=== PATIENT | female | born 1960 | race Two or more races ===

== ENCOUNTER 2021-04-25 09:37 | Emergency (ER) | payer MEDICAID ==
[~2021-04-25] VITALS: Ht 162.6 cm; Wt 73.0 kg
[2021-04-25 10:30] LABS: Hematocrit 40.9 % (36.0-46.0); Hemoglobin 13.9 g/dL (12.2-16.2); Lymphocytes % (auto) 19.6 % (10.0-50.0); Mean Corpuscular Hemoglobin 28.8 pg (28.0-32.0); Mean Corpuscular Hgb Conc. 33.9 g/dL (32.0-36.0); Mean Corpuscular Volume 84.9 fL (80.0-100.0); Monocytes # (auto) 0.2 10 ^3/uL (0-1.3); Monocytes % (auto) 4.4 % (0.0-12.0); Neutrophils # (auto) 3.5 10 ^3/uL (1.6-8.6); Neutrophils % (auto) 70.7 % (37.0-80.0); Nucleated Red Blood Cells % 0.1 %; Red Blood Cells 4.82 10^6/uL (4.0-5.20); Red Cell Distribution Width 13.8 % (11.8-14.3)
[2021-04-25 10:31] LABS: Basophils # (auto) 0.1 10 ^3/uL (0-0.2); Basophils % (auto) 2.1 % (0.0-2.0); Eosinophils # (auto) 0.2 10 ^3/uL (0-0.8); Eosinophils % (auto) 3.2 % (0.0-7.0)
[2021-04-25] MEDS ORDERED: FLEET ENEMA(ADULT) 135 ML PR ONE (11:00)
[2021-04-25 11:01] LABS: Urine Bacteria FEW /hpf (None Seen); Urine Blood Negative /uL (Negative); Urine Specific Gravity 1.022 (1.001-1.035); Urine WBC 2 /hpf (0 - 5)
[2021-04-25 11:16] LABS: Albumin 3.6 g/dL (3.4-5.0); Calcium 9.8 mg/dL (8.5-10.1); Potassium 4.1 mmol/L (3.5-5.1)
[2021-04-25 11:20] LABS: BUN/Creatinine Ratio 24.6; Bilirubin, Total 0.6 mg/dL (0.2-1.0); Total Protein 7.3 g/dL (6.4-8.2)
[2021-04-25 12:57] VITALS: BP 134/92
== END 2021-04-25 12:58 | disposition home or self-care (01) ==
LOC: ER 09:37
DX: K59.00 Constipation, unspecified (principal); I10 Essential (primary) hypertension; E11.9 Type 2 diabetes mellitus without complications; E78.5 Hyperlipidemia, unspecified; F17.210 Nicotine dependence, cigarettes, uncomplicated
CPT/HCPCS: 36415; 74176; 80053; 81001; 85025; 93005

== ENCOUNTER 2021-05-01 11:05 | Emergency (ER) | payer MEDICAID ==
[~2021-05-01] VITALS: Ht 162.6 cm; Wt 74.8 kg
[2021-05-01 11:08] VITALS: BP 157/82
[2021-05-01] MEDS ORDERED: DOCU-94 PO (13:45)
[2021-05-01] MEDS ORDERED: POLY33504 PO (13:45)
== END 2021-05-01 16:47 | disposition home or self-care (01) ==
LOC: ER 11:05
DX: K59.00 Constipation, unspecified (principal); I10 Essential (primary) hypertension; E78.5 Hyperlipidemia, unspecified; E11.9 Type 2 diabetes mellitus without complications; F17.210 Nicotine dependence, cigarettes, uncomplicated; Z90.710 Acquired absence of both cervix and uterus
CPT/HCPCS: 93005

== ENCOUNTER 2021-08-09 09:25 | Emergency (ER) | payer MEDICAID ==
[~2021-08-09] VITALS: Ht 162.6 cm; Wt 62.1 kg
[~2021-08-09 09:25] MED LIST: DOCU-94 PO; POLY33504 PO
[2021-08-09] MEDS ORDERED: ASPirin 81 mg TAB PO ONE (10:00)
[2021-08-09 10:34] LABS: Basophils # (auto) 0 10 ^3/uL (0-0.2); Basophils % (auto) 1.2 % (0.0-2.0); Eosinophils # (auto) 0.2 10 ^3/uL (0-0.8); Eosinophils % (auto) 4.5 % (0.0-7.0); Hematocrit 35.3 % (36.0-46.0); Hemoglobin 11.7 g/dL (12.2-16.2); Mean Corpuscular Hemoglobin 29.3 pg (28.0-32.0); Mean Corpuscular Hgb Conc. 33.1 g/dL (32.0-36.0); Mean Corpuscular Volume 88.6 fL (80.0-100.0); Monocytes # (auto) 0.2 10 ^3/uL (0-1.3); Monocytes % (auto) 5.6 % (0.0-12.0); Neutrophils # (auto) 2.3 10 ^3/uL (1.6-8.6); Neutrophils % (auto) 60.7 % (37.0-80.0); Red Blood Cells 3.98 10^6/uL (4.0-5.20); Red Cell Distribution Width 14.1 % (11.8-14.3); White Blood Cell 3.7 10^3/uL (4.4-10.8)
[2021-08-09 10:54] LABS: Albumin 3.5 g/dL (3.4-5.0); Calcium 9.1 mg/dL (8.5-10.1); Potassium 3.8 mmol/L (3.5-5.1)
[2021-08-09 10:58] LABS: BUN/Creatinine Ratio 14.6; Bilirubin, Total 0.6 mg/dL (0.2-1.0); Total Protein 6.9 g/dL (6.4-8.2)
[2021-08-09] MEDS: HYDROcodone-ACET 10/325MG TAB PO ONE ×2 (11:07→11:14)
[2021-08-09 11:25] VITALS: BP 146/77
[2021-08-09] MEDS ORDERED: ONDANSETRON HCL 4 MG/2 ML VIAL IV ONE (11:30)
[2021-08-09] MEDS ORDERED: MORPHINE SULFATE 4 MG/ML SYR/VIAL IV ONE (11:30)
[2021-08-09 12:21] LABS: Urine Bacteria NONE SEEN /hpf (None Seen); Urine Blood Negative /uL (Negative); Urine Specific Gravity 1.026 (1.001-1.035); Urine WBC 2 /hpf (0 - 5)
== END 2021-08-09 12:10 | disposition left against medical advice (07) ==
LOC: ER 09:25
DX: R10.11 Right upper quadrant pain (principal); I10 Essential (primary) hypertension; E11.9 Type 2 diabetes mellitus without complications; E78.5 Hyperlipidemia, unspecified; F17.210 Nicotine dependence, cigarettes, uncomplicated; Z90.49 Acquired absence of other specified parts of digestive tract; Z90.710 Acquired absence of both cervix and uterus; Z79.899 Other long term (current) drug therapy
CPT/HCPCS: 36415; 71046; 74177; 80053; 81001; 83735; 83880; 84484; 85025; 85379; 93005; 96374; 99285; J2270; Q9967; J2405

== ENCOUNTER 2021-08-11 09:24 | Inpatient (IN) | payer MEDICAID ==
[~2021-08-11] VITALS: Ht 162.6 cm; Wt 71.5 kg
[2021-08-11 10:40] LABS: Basophils # (auto) 0 10 ^3/uL (0-0.2); Basophils % (auto) 1.2 % (0.0-2.0); Eosinophils # (auto) 0.1 10 ^3/uL (0-0.8); Hematocrit 37.4 % (36.0-46.0); Hemoglobin 12.1 g/dL (12.2-16.2); Lymphocytes % (auto) 25.4 % (10.0-50.0); Mean Corpuscular Hemoglobin 28.7 pg (28.0-32.0); Mean Corpuscular Hgb Conc. 32.3 g/dL (32.0-36.0); Mean Corpuscular Volume 88.7 fL (80.0-100.0); Monocytes # (auto) 0.2 10 ^3/uL (0-1.3); Monocytes % (auto) 5.7 % (0.0-12.0); Neutrophils # (auto) 2.6 10 ^3/uL (1.6-8.6); Neutrophils % (auto) 64.7 % (37.0-80.0); Red Blood Cells 4.22 10^6/uL (4.0-5.20)
[2021-08-11 10:56] LABS: Albumin 3.7 g/dL (3.4-5.0); Calcium 9.4 mg/dL (8.5-10.1); Magnesium 2.4 mg/dL (1.6-2.6); Potassium 3.7 mmol/L (3.5-5.1)
[2021-08-11 11:01] LABS: Bilirubin, Total 0.6 mg/dL (0.2-1.0); Total Protein 7.2 g/dL (6.4-8.2)
[2021-08-11] MEDS ORDERED: ASPirin 81 mg TAB PO ONE (11:30)
[2021-08-11 12:00] LABS: Urine Bacteria NONE SEEN /hpf (None Seen); Urine Blood Negative /uL (Negative); Urine Hyaline Cast FEW /lpf (0 - 2); Urine Mucus FEW (None Seen); Urine Specific Gravity 1.033 (1.001-1.035); Urine WBC 3 /hpf (0 - 5)
[2021-08-11 12:30] LABS: Alcohol, Urine < 3.0 mg/dL (0-10); Amphetamine Screen, Urine NEGATIVE (NEGATIVE); Barbiturate Scree,Urine NEGATIVE (NEGATIVE); Benzodiazephine Screen, Urine NEGATIVE (NEGATIVE); Cannabinoid Screen, Urine POSITIVE (NEGATIVE); Cocaine Screen, Urine NEGATIVE (NEGATIVE); Opiate Scree,Urine POSITIVE (NEGATIVE); Phencyclidine Screen, Urine NEGATIVE (NEGATIVE)
[2021-08-11] MEDS ORDERED: HYDROcodone-ACET 5/325MG TAB PO ONE (16:30)
[2021-08-11] MEDS ORDERED: CEPHALEXIN 250 MG CAP PO ONE (16:30)
[2021-08-11] MEDS ORDERED: cefTRIAXone 1GM/50ML D5W 50 ML IV ONE (16:30)
[2021-08-11] MEDS ORDERED: NITROGLYCERIN 0.4 MG SL TAB SL PRN (17:15)
[2021-08-11] MEDS ORDERED: MORPHINE SULFATE INJ 2 MG/ml SYRG IV PRN (17:15)
[2021-08-11] MEDS ORDERED: ONDANSETRON HCL 4 MG/2 ML VIAL IV PRN (17:15)
[2021-08-11] MEDS ORDERED: ACETAMINOPHEN 325 MG TAB PO PRN (17:15)
[2021-08-11] MEDS: SODIUM CHLORIDE 0.9% 1,000 ML IV SCH (17:45)
[2021-08-11] MEDS: MORPHINE SULFATE INJ 2 MG/ml SYRG IV PRN (20:05)
[2021-08-11 22:00] VITALS: BP 145/85
[2021-08-11 22:16] VITALS: BP 145/85
[2021-08-11 22:19] VITALS: BP 145/85
[2021-08-11] MEDS ORDERED: PANT40T PO (22:40)
[2021-08-11] MEDS ORDERED: MAGN241.6 PO (22:40)
[2021-08-11] MEDS ORDERED: GLIP10TA9 PO (22:40)
[2021-08-11] MEDS ORDERED: MAGNSOL PO (22:40)
[2021-08-11] MEDS: HYDROcodone-ACET 5/325MG TAB PO PRN (22:42)
[2021-08-11] MEDS ORDERED: NAP500T PO (22:43)
[2021-08-11] MEDS ORDERED: LORA-483 PO (22:43)
[2021-08-11] MEDS ORDERED: TEMAZEPAM 15 MG CAP PO ONE (23:00)
[2021-08-11] MEDS ORDERED: BISACODYL 10 MG RECT SUPP PR PRN (23:00)
[2021-08-11] MEDS ORDERED: DOCUSATE SOD 100 MG CAP PO SCH (23:00)
[2021-08-12] MEDS: MORPHINE SULFATE INJ 2 MG/ml SYRG IV PRN ×5 (01:12→19:54)
[2021-08-12] MEDS: SODIUM CHLORIDE 0.9% 1,000 ML IV SCH ×4 (01:35→22:35)
[2021-08-12 05:00] VITALS: BP 156/93
[2021-08-12 06:09] LABS: Albumin 3.2 g/dL (3.4-5.0); BUN/Creatinine Ratio 18.9; Basophils # (auto) 0 10 ^3/uL (0-0.2); Basophils % (auto) 1.1 % (0.0-2.0); Calcium 9.1 mg/dL (8.5-10.1); Eosinophils # (auto) 0.2 10 ^3/uL (0-0.8); Hematocrit 31.8 % (36.0-46.0); Hemoglobin 10.9 g/dL (12.2-16.2); Lymphocytes # (auto) 1.5 10 ^3/uL (0.4-5.4); Lymphocytes % (auto) 38.7 % (10.0-50.0); Mean Corpuscular Hemoglobin 30.3 pg (28.0-32.0); Mean Corpuscular Hgb Conc. 34.2 g/dL (32.0-36.0); Mean Corpuscular Volume 88.6 fL (80.0-100.0); Monocytes # (auto) 0.3 10 ^3/uL (0-1.3); Monocytes % (auto) 8.8 % (0.0-12.0); Neutrophils # (auto) 1.8 10 ^3/uL (1.6-8.6); Neutrophils % (auto) 46.4 % (37.0-80.0); Nucleated Red Blood Cells % 0.1 %; Potassium 3.6 mmol/L (3.5-5.1); Red Blood Cells 3.59 10^6/uL (4.0-5.20); White Blood Cell 3.9 10^3/uL (4.4-10.8)
[2021-08-12 06:12] LABS: Bilirubin, Total 0.4 mg/dL (0.2-1.0)
[2021-08-12 09:25] VITALS: BP 141/96
[2021-08-12] MEDS: cefTRIAXone 1GM/50ML D5W 50 ML IV SCH (09:33)
[2021-08-12] MEDS: DOCUSATE SOD 100 MG CAP PO SCH ×2 (09:34→22:20)
[2021-08-12] MEDS: ENOXAPARIN SOD 40 MG/0.4 ML SYRINGE SC SCH (09:34)
[2021-08-12 13:00] VITALS: BP 150/98
[2021-08-12] MEDS ORDERED: TEMAZEPAM 15 MG CAP PO PRN (21:45)
[2021-08-12 22:00] VITALS: BP 141/97
[2021-08-12] MEDS: HYDROcodone-ACET 5/325MG TAB PO PRN (23:04)
[2021-08-13] MEDS: MORPHINE SULFATE INJ 2 MG/ml SYRG IV PRN ×4 (01:35→13:47)
[2021-08-13 05:00] VITALS: BP 139/91
[2021-08-13] MEDS ORDERED: ADENOSINE 60 MG in GIVE UN-DILUTED 0 ML IV ONE (08:15)
[2021-08-13 09:19] VITALS: BP 144/98
[2021-08-13] MEDS: SODIUM CHLORIDE 0.9% 1,000 ML IV SCH (10:55)
[2021-08-13] MEDS: cefTRIAXone 1GM/50ML D5W 50 ML IV SCH (11:10)
[2021-08-13] MEDS: DOCUSATE SOD 100 MG CAP PO SCH (11:10)
[2021-08-13] MEDS: ENOXAPARIN SOD 40 MG/0.4 ML SYRINGE SC SCH (11:11)
[2021-08-13] MEDS: HYDROcodone-ACET 5/325MG TAB PO PRN (11:12)
[2021-08-13 13:47] VITALS: BP 124/72
== END 2021-08-13 13:15 | disposition home or self-care (01) | DRG 203 ==
LOC: ER 09:24 → TELE 17:14 → TELE-CENTR 21:45
PROVIDERS: ADMIT Internal Medicine; ATTEND Internal Medicine
DX: R07.9 Chest pain, unspecified (principal); E11.9 Type 2 diabetes mellitus without complications; I10 Essential (primary) hypertension; F17.210 Nicotine dependence, cigarettes, uncomplicated; E78.5 Hyperlipidemia, unspecified; Z20.822 Contact with and (suspected) exposure to COVID-19; F41.9 Anxiety disorder, unspecified; Z90.710 Acquired absence of both cervix and uterus; Z90.49 Acquired absence of other specified parts of digestive tract; Z80.3 Family history of malignant neoplasm of breast; Z79.84 Long term (current) use of oral hypoglycemic drugs
CPT/HCPCS: 36415; 71045; 76705; 78452; 80053; 80307; 81001; 82962; 83735; 83880; 84484; 85025; 85379; 93005; 93017; 93306; 96361; 96374; 97110; 97116; 97163; 97530; G0378; J0153; J0696

== ENCOUNTER 2021-08-22 15:32 | Emergency (ER) | payer MEDICAID ==
[~2021-08-22 15:32] MED LIST changes: +GLIP10TA9 PO; +LORA-483 PO; +MAGN241.6 PO; +MAGNSOL PO; +PANT40T PO
[2021-08-22] MEDS ORDERED: PANTOPRAZOLE 40 MG/10 ML VIAL INJ IV ONE (16:00)
[2021-08-22] MEDS ORDERED: SODIUM CHLORIDE 0.9% 1,000 ML IVB ONE (16:00)
[2021-08-22] MEDS ORDERED: ONDANSETRON HCL 4 MG/2 ML VIAL IV ONE (16:00)
[2021-08-22] MEDS ORDERED: MORPHINE SULFATE 4 MG/ML SYR/VIAL IV ONE (16:00)
[2021-08-22 16:23] LABS: Basophils # (auto) 0.1 10 ^3/uL (0-0.2); Eosinophils # (auto) 0.1 10 ^3/uL (0-0.8); Eosinophils % (auto) 1.2 % (0.0-7.0); Hematocrit 38.7 % (36.0-46.0); Hemoglobin 12.7 g/dL (12.2-16.2); Mean Corpuscular Hemoglobin 29.3 pg (28.0-32.0); Mean Corpuscular Hgb Conc. 32.8 g/dL (32.0-36.0); Mean Corpuscular Volume 89.4 fL (80.0-100.0); Monocytes # (auto) 0.3 10 ^3/uL (0-1.3); Neutrophils # (auto) 4.1 10 ^3/uL (1.6-8.6); Neutrophils % (auto) 74.8 % (37.0-80.0); Red Blood Cells 4.33 10^6/uL (4.0-5.20); Red Cell Distribution Width 13.4 % (11.8-14.3); White Blood Cell 5.4 10^3/uL (4.4-10.8)
[2021-08-22 16:39] LABS: Albumin 3.8 g/dL (3.4-5.0); Calcium 10.1 mg/dL (8.5-10.1); Potassium 4.3 mmol/L (3.5-5.1)
[2021-08-22 16:43] LABS: BUN/Creatinine Ratio 16.9; Bilirubin, Total 0.6 mg/dL (0.2-1.0); Total Protein 7.9 g/dL (6.4-8.2)
[2021-08-22 19:45] VITALS: BP 136/87
== END 2021-08-22 19:48 | disposition home or self-care (01) ==
LOC: ER 15:32
DX: R10.11 Right upper quadrant pain (principal); I10 Essential (primary) hypertension; E11.9 Type 2 diabetes mellitus without complications; E78.5 Hyperlipidemia, unspecified; F17.210 Nicotine dependence, cigarettes, uncomplicated; Z90.49 Acquired absence of other specified parts of digestive tract; Z90.710 Acquired absence of both cervix and uterus; Z79.899 Other long term (current) drug therapy
CPT/HCPCS: 36415; 80053; 82150; 83690; 85025; 96361; 96374; 96375; 99284; C9113; J2270; J2405; J7030

== ENCOUNTER 2021-09-01 07:40 | Emergency (ER) | payer MEDICAID ==
[~2021-09-01] VITALS: Ht 162.6 cm; Wt 58.0 kg
[2021-09-01 08:21] LABS: Basophils # (auto) 0.1 10 ^3/uL (0-0.2); Basophils % (auto) 1.5 % (0.0-2.0); Eosinophils # (auto) 0.4 10 ^3/uL (0-0.8); Eosinophils % (auto) 7.7 % (0.0-7.0); Hematocrit 34.5 % (36.0-46.0); Hemoglobin 11.7 g/dL (12.2-16.2); Lymphocytes # (auto) 1.1 10 ^3/uL (0.4-5.4); Lymphocytes % (auto) 19.6 % (10.0-50.0); Mean Corpuscular Hemoglobin 29.7 pg (28.0-32.0); Mean Corpuscular Volume 87.4 fL (80.0-100.0); Monocytes # (auto) 0.3 10 ^3/uL (0-1.3); Monocytes % (auto) 5.2 % (0.0-12.0); Neutrophils # (auto) 3.6 10 ^3/uL (1.6-8.6); Red Blood Cells 3.95 10^6/uL (4.0-5.20); White Blood Cell 5.4 10^3/uL (4.4-10.8)
[2021-09-01 08:55] LABS: Albumin 3.7 g/dL (3.4-5.0); Calcium 9.7 mg/dL (8.5-10.1); Potassium 3.6 mmol/L (3.5-5.1)
[2021-09-01 08:58] LABS: BUN/Creatinine Ratio 25.2; Bilirubin, Total 0.5 mg/dL (0.2-1.0); Total Protein 7.2 g/dL (6.4-8.2)
[2021-09-01 09:42] LABS: Urine Bacteria FEW /hpf (None Seen); Urine Blood Negative /uL (Negative); Urine Mucus FEW (None Seen); Urine Specific Gravity 1.018 (1.001-1.035); Urine WBC 8 /hpf (0 - 5)
[2021-09-01] MEDS ORDERED: MAGNESIUM CITRATE SOLUTION 300 ML BTL PO ONE (12:45)
[2021-09-01] MEDS ORDERED: LACTULOSE 20Gm/30ML SOLN PO ONE (12:45)
[2021-09-01] MEDS ORDERED: KETOROLAC TROMETH 60MG/2ML VIAL IM ONE (12:45)
[2021-09-01 13:24] VITALS: BP 107/70
== END 2021-09-01 13:32 | disposition home or self-care (01) ==
LOC: ER 07:40
DX: K59.00 Constipation, unspecified (principal); F41.1 Generalized anxiety disorder; E11.9 Type 2 diabetes mellitus without complications; E78.5 Hyperlipidemia, unspecified; I10 Essential (primary) hypertension; Z90.49 Acquired absence of other specified parts of digestive tract; Z90.710 Acquired absence of both cervix and uterus
CPT/HCPCS: 36415; 71046; 74018; 80053; 81001; 84484; 85025; 93005; 96372; 99285; J1885

== ENCOUNTER 2021-09-10 10:56 | Emergency (ER) | payer MEDICAID ==
[~2021-09-10] VITALS: Ht 162.6 cm; Wt 62.7 kg
[2021-09-10] MEDS ORDERED: ONDANSETRON HCL 4 MG/2 ML VIAL IM ONE (11:15)
[2021-09-10] MEDS ORDERED: HYDROmorphone HCL 2 MG/ML VL/or syr IM ONE (11:15)
[2021-09-10 11:44] VITALS: BP 111/74
== END 2021-09-10 13:00 | disposition home or self-care (01) ==
LOC: ER 10:56
DX: R10.9 Unspecified abdominal pain (principal); R11.0 Nausea; I10 Essential (primary) hypertension; E11.9 Type 2 diabetes mellitus without complications; E78.5 Hyperlipidemia, unspecified; F17.210 Nicotine dependence, cigarettes, uncomplicated; Z90.49 Acquired absence of other specified parts of digestive tract; Z90.710 Acquired absence of both cervix and uterus; Z79.899 Other long term (current) drug therapy
CPT/HCPCS: 96372; 99284; J1170; J2405

== ENCOUNTER 2021-11-21 02:33 | Inpatient (IN) | payer MEDICAID ==
[~2021-11-21] VITALS: Ht 167.6 cm; Wt 65.2 kg
[2021-11-21] MEDS ORDERED: MORPHINE SULFATE 4 MG/ML SYR/VIAL IV ONE ×2 (04:30→09:15)
[2021-11-21 06:31] LABS: Urine Bacteria NONE SEEN /hpf (None Seen); Urine Blood Negative /uL (Negative); Urine WBC 3 /hpf (0 - 5)
[2021-11-21 06:32] LABS: Basophils # (auto) 0 10 ^3/uL (0-0.2); Basophils % (auto) 0.9 % (0.0-2.0); Eosinophils # (auto) 0.1 10 ^3/uL (0-0.8); Eosinophils % (auto) 3.3 % (0.0-7.0); Hematocrit 33.4 % (36.0-46.0); Hemoglobin 10.9 g/dL (12.2-16.2); Lymphocytes # (auto) 1.3 10 ^3/uL (0.4-5.4); Lymphocytes % (auto) 32.4 % (10.0-50.0); Mean Corpuscular Hemoglobin 27.9 pg (28.0-32.0); Mean Corpuscular Hgb Conc. 32.5 g/dL (32.0-36.0); Mean Corpuscular Volume 85.9 fL (80.0-100.0); Monocytes # (auto) 0.3 10 ^3/uL (0-1.3); Neutrophils # (auto) 2.2 10 ^3/uL (1.6-8.6); Neutrophils % (auto) 56.4 % (37.0-80.0); Red Blood Cells 3.89 10^6/uL (4.0-5.20); Red Cell Distribution Width 13.8 % (11.8-14.3); White Blood Cell 3.9 10^3/uL (4.4-10.8)
[2021-11-21 06:48] LABS: Albumin 3.4 g/dL (3.4-5.0); Calcium 9.3 mg/dL (8.5-10.1); Potassium 3.9 mmol/L (3.5-5.1)
[2021-11-21 06:52] LABS: BUN/Creatinine Ratio 24.4; Bilirubin, Total 0.9 mg/dL (0.2-1.0); Total Protein 6.7 g/dL (6.4-8.2)
[2021-11-21] MEDS ORDERED: SODIUM CHLORIDE 0.9% 1,000 ML IV ONE (09:00)
[2021-11-21] MEDS ORDERED: IOHEXOL 300 MG/ML 100ML BOTTLE IJ ONE (09:04)
[2021-11-21] MEDS ORDERED: LIDOCAINE VISCOUS 2% 15ML UD PO ONE (12:30)
[2021-11-21] MEDS ORDERED: DONNATAL 5ml ORAL Elix (BELLADONNA ALK-PHENOBARB) PO ONE (12:30)
[2021-11-21] MEDS ORDERED: ALUM & MAG HYDROX-SIMETH LIQ(MAALOX) 30 ML PO ONE (12:30)
[2021-11-21] MEDS ORDERED: PANTOPRAZOLE 40 MG/10 ML VIAL INJ IV ONE (14:45)
[2021-11-21] MEDS ORDERED: metroNIDAZOLE 500MG/100ML 100 ML IV ONE (14:45)
[2021-11-21] MEDS ORDERED: ONDANSETRON HCL 4 MG/2 ML VIAL IV PRN (14:45)
[2021-11-21] MEDS ORDERED: DEXTROSE (50%) 50ML SYRG IV PRN (14:45)
[2021-11-21] MEDS ORDERED: hydrALAZINE HCL 20 MG/ML VL IV PRN (14:45)
[2021-11-21] MEDS ORDERED: NITROGLYCERIN 0.4 MG SL TAB SL PRN (14:45)
[2021-11-21] MEDS ORDERED: MORPHINE SULFATE INJ 2 MG/ml SYRG IV PRN (14:45)
[2021-11-21 15:01] LABS: Cholesterol 167 mg/dL (< 200)
[2021-11-21 15:04] LABS: HDL Cholesterol 62 mg/dL (40-59); LDL Cholesterol 87 mg/dL (< 100); Triglycerides 97 mg/dL (< 150)
[2021-11-21 15:45] LABS: Alcohol, Urine < 3.0 mg/dL (0-10); Amphetamine Screen, Urine NEGATIVE (NEGATIVE); Barbiturate Scree,Urine NEGATIVE (NEGATIVE); Benzodiazephine Screen, Urine NEGATIVE (NEGATIVE); Cannabinoid Screen, Urine NEGATIVE (NEGATIVE); Cocaine Screen, Urine NEGATIVE (NEGATIVE); Opiate Scree,Urine POSITIVE (NEGATIVE); Phencyclidine Screen, Urine NEGATIVE (NEGATIVE)
[2021-11-21] MEDS: ACCU-CHEK COMFORT CURVE STRIP VI SCH ×2 (17:00→21:50)
[2021-11-21] MEDS: InsuLIN REG 1unit/0.01ml Soln (100units/ml) SC SCH ×2 (17:30→21:49)
[2021-11-21] MEDS: SUCRALFATE 1 GM/10 ML ORAL SUSP PO SCH ×2 (18:44→21:50)
[2021-11-21] MEDS: MORPHINE SULFATE INJ 2 MG/ml SYRG IV PRN ×2 (20:16→23:59)
[2021-11-21 21:19] VITALS: BP 146/79
[2021-11-21 21:31] VITALS: BP 146/79
[2021-11-21] MEDS: metroNIDAZOLE 500MG/100ML 100 ML IV SCH (21:50)
[2021-11-21 22:00] VITALS: BP 149/79
[2021-11-22] MEDS: MORPHINE SULFATE INJ 2 MG/ml SYRG IV PRN ×5 (04:12→21:53)
[2021-11-22 05:00] VITALS: BP 134/64
[2021-11-22] MEDS: ACCU-CHEK COMFORT CURVE STRIP VI SCH ×4 (05:54→22:03)
[2021-11-22] MEDS: metroNIDAZOLE 500MG/100ML 100 ML IV SCH (05:54)
[2021-11-22] MEDS: InsuLIN REG 1unit/0.01ml Soln (100units/ml) SC SCH ×4 (05:54→22:03)
[2021-11-22] MEDS: SUCRALFATE 1 GM/10 ML ORAL SUSP PO SCH ×4 (05:54→21:58)
[2021-11-22 06:38] LABS: Basophils # (auto) 0.1 10 ^3/uL (0-0.2); Basophils % (auto) 1.6 % (0.0-2.0); Eosinophils # (auto) 0.1 10 ^3/uL (0-0.8); Eosinophils % (auto) 3.5 % (0.0-7.0); Hematocrit 34.9 % (36.0-46.0); Hemoglobin 11.3 g/dL (12.2-16.2); Lymphocytes # (auto) 1.3 10 ^3/uL (0.4-5.4); Lymphocytes % (auto) 38.8 % (10.0-50.0); Mean Corpuscular Hemoglobin 28.1 pg (28.0-32.0); Mean Corpuscular Hgb Conc. 32.5 g/dL (32.0-36.0); Mean Corpuscular Volume 86.6 fL (80.0-100.0); Monocytes # (auto) 0.2 10 ^3/uL (0-1.3); Monocytes % (auto) 5.6 % (0.0-12.0); Neutrophils # (auto) 1.7 10 ^3/uL (1.6-8.6); Neutrophils % (auto) 50.5 % (37.0-80.0); Nucleated Red Blood Cells % 0.2 %; Red Blood Cells 4.02 10^6/uL (4.0-5.20); Red Cell Distribution Width 13.8 % (11.8-14.3); White Blood Cell 3.3 10^3/uL (4.4-10.8)
[2021-11-22 06:55] LABS: Albumin 3.3 g/dL (3.4-5.0); Calcium 8.8 mg/dL (8.5-10.1); Potassium 4.4 mmol/L (3.5-5.1)
[2021-11-22 06:58] LABS: BUN/Creatinine Ratio 20.4
[2021-11-22 07:00] LABS: Bilirubin, Total 0.6 mg/dL (0.2-1.0); Total Protein 6.2 g/dL (6.4-8.2)
[2021-11-22 08:00] VITALS: BP 139/93
[2021-11-22] MEDS ORDERED: PANTOPRAZOLE 40 MG/10 ML VIAL INJ IV SCH (10:00)
[2021-11-22] MEDS ORDERED: amLODIPine BESYLATE 5 MG TAB PO ONE (11:00)
[2021-11-22 12:00] VITALS: BP 120/78
[2021-11-22] MEDS: PREDNISOLONE 1% LEFTEYE SCH ×2 (13:08→22:00)
[2021-11-22] MEDS: DORZOLAMIDE LEFTEYE SCH ×2 (13:08→21:59)
[2021-11-22] MEDS: TIMOLOL LEFTEYE SCH ×2 (13:08→21:59)
[2021-11-22 16:00] VITALS: BP 144/73
[2021-11-22] MEDS: PANTOPRAZOLE 40 MG/10 ML VIAL INJ IV SCH (21:58)
[2021-11-22 22:00] VITALS: BP 130/75
[2021-11-23] MEDS: MORPHINE SULFATE INJ 2 MG/ml SYRG IV PRN ×5 (02:54→22:11)
[2021-11-23 05:00] VITALS: BP 141/75
[2021-11-23 06:43] LABS: Basophils # (auto) 0 10 ^3/uL (0-0.2); Basophils % (auto) 1.2 % (0.0-2.0); Eosinophils # (auto) 0.2 10 ^3/uL (0-0.8); Eosinophils % (auto) 4.8 % (0.0-7.0); Hematocrit 33.9 % (36.0-46.0); Hemoglobin 11.1 g/dL (12.2-16.2); Lymphocytes # (auto) 1.1 10 ^3/uL (0.4-5.4); Lymphocytes % (auto) 35.2 % (10.0-50.0); Mean Corpuscular Hemoglobin 28.2 pg (28.0-32.0); Mean Corpuscular Hgb Conc. 32.8 g/dL (32.0-36.0); Mean Corpuscular Volume 85.9 fL (80.0-100.0); Monocytes # (auto) 0.3 10 ^3/uL (0-1.3); Neutrophils # (auto) 1.7 10 ^3/uL (1.6-8.6); Neutrophils % (auto) 50.8 % (37.0-80.0); Nucleated Red Blood Cells % 0.2 %; Red Blood Cells 3.94 10^6/uL (4.0-5.20); Red Cell Distribution Width 13.6 % (11.8-14.3); White Blood Cell 3.3 10^3/uL (4.4-10.8)
[2021-11-23] MEDS: PREDNISOLONE 1% LEFTEYE SCH ×3 (06:44→22:20)
[2021-11-23] MEDS: SUCRALFATE 1 GM/10 ML ORAL SUSP PO SCH ×4 (06:45→22:10)
[2021-11-23] MEDS: ACCU-CHEK COMFORT CURVE STRIP VI SCH ×4 (06:46→22:20)
[2021-11-23] MEDS: InsuLIN REG 1unit/0.01ml Soln (100units/ml) SC SCH ×4 (06:46→22:22)
[2021-11-23 06:52] LABS: INR 1.03 (0.9-1.15); Partial Thromboplastin Time 25.3 sec (24.6-33.4)
[2021-11-23 06:58] LABS: BUN/Creatinine Ratio 17.2; Potassium 4.2 mmol/L (3.5-5.1)
[2021-11-23 08:00] VITALS: BP 133/80
[2021-11-23] MEDS: PANTOPRAZOLE 40 MG/10 ML VIAL INJ IV SCH ×2 (09:55→22:11)
[2021-11-23] MEDS: DORZOLAMIDE LEFTEYE SCH ×2 (09:56→22:19)
[2021-11-23] MEDS: TIMOLOL LEFTEYE SCH ×2 (09:56→22:19)
[2021-11-23] MEDS: amLODIPine BESYLATE 5 MG TAB PO SCH (09:56)
[2021-11-23] MEDS ORDERED: SODIUM CHLORIDE LOCK 10 ML ONE (10:24)
[2021-11-23] MEDS: SODIUM CHLORIDE 0.9% 1,000 ML IV SCH ×2 (10:30→23:50)
[2021-11-23] MEDS ORDERED: LIDOCAINE VISCOUS 2% 15ML UD ONE (10:46)
[2021-11-23] MEDS: MIDAZOLAM HCL 5 MG/ML-1ML VIAL ONE ×2 (11:12→13:06)
[2021-11-23] MEDS: diphenhdrAMINE HCL 50 MG/1 ML VL ONE ×2 (11:12→11:14)
[2021-11-23] MEDS: fentaNYL CITRATE 100 MCG/2 ML VL ONE ×2 (11:12→11:24)
[2021-11-23 12:10] VITALS: BP 156/78
[2021-11-23 16:00] VITALS: BP 160/69
[2021-11-23 22:00] VITALS: BP 115/69
[2021-11-24 05:00] VITALS: BP 138/78
[2021-11-24] MEDS: MORPHINE SULFATE INJ 2 MG/ml SYRG IV PRN ×2 (05:43→10:49)
[2021-11-24] MEDS: PREDNISOLONE 1% LEFTEYE SCH (05:56)
[2021-11-24] MEDS: SUCRALFATE 1 GM/10 ML ORAL SUSP PO SCH ×2 (06:03→11:49)
[2021-11-24] MEDS: InsuLIN REG 1unit/0.01ml Soln (100units/ml) SC SCH ×2 (06:04→11:30)
[2021-11-24] MEDS: ACCU-CHEK COMFORT CURVE STRIP VI SCH ×2 (06:05→11:49)
[2021-11-24 09:00] VITALS: BP 133/76
[2021-11-24] MEDS: PANTOPRAZOLE 40 MG/10 ML VIAL INJ IV SCH (10:29)
[2021-11-24] MEDS: amLODIPine BESYLATE 5 MG TAB PO SCH (10:29)
[2021-11-24] MEDS: DORZOLAMIDE LEFTEYE SCH (10:30)
[2021-11-24] MEDS: TIMOLOL LEFTEYE SCH (10:30)
[2021-11-24] MEDS ORDERED: SUCR1TAB22 PO (11:02)
[2021-11-24] MEDS ORDERED: PANT40TA2 PO (11:02)
[2021-11-24 11:45] VITALS: BP 124/72
[2021-11-24] MEDS: SODIUM CHLORIDE 0.9% 1,000 ML IV SCH (13:10)
== END 2021-11-24 14:37 | disposition home or self-care (01) | DRG 241 ==
LOC: ER 02:37 → OVERFLOW 14:38 → EAST 21:02
PROVIDERS: ADMIT Registered Nurse; ATTEND Internal Medicine
PROC: 0DB68ZX Excision of Stomach, Via Natural or Artificial Opening Endoscopic, Diagnostic (ICD-10-PCS; 2021-11-23)
PROC: 0DB98ZX Excision of Duodenum, Via Natural or Artificial Opening Endoscopic, Diagnostic (ICD-10-PCS; principal; 2021-11-23 11:08)
DX: K29.70 Gastritis, unspecified, without bleeding (principal); K85.90 Acute pancreatitis without necrosis or infection, unspecified; E27.8 Other specified disorders of adrenal gland; D63.8 Anemia in other chronic diseases classified elsewhere; E11.21 Type 2 diabetes mellitus with diabetic nephropathy; I10 Essential (primary) hypertension; E78.5 Hyperlipidemia, unspecified; Z20.822 Contact with and (suspected) exposure to COVID-19; F41.9 Anxiety disorder, unspecified; N28.1 Cyst of kidney, acquired; Z79.899 Other long term (current) drug therapy; Z80.3 Family history of malignant neoplasm of breast; Z90.711 Acquired absence of uterus with remaining cervical stump; Z90.49 Acquired absence of other specified parts of digestive tract
CPT/HCPCS: 36415; 74177; 74181; 76775; 80048; 80053; 80061; 80307; 81001; 82150; 82962; 83036; 83690; 83735; 85025; 85610; 85730; 87426; 93005; 96361; 96374; 96376; C9113; G0378; J1815; J2250; J3490; J7060

== ENCOUNTER 2021-12-21 13:44 | Emergency (ER) | payer MEDICAID ==
[~2021-12-21] VITALS: Ht 162.6 cm; Wt 62.5 kg
[~2021-12-21 13:44] MED LIST changes: +PANT40TA2 PO; +SUCR1TAB22 PO
[2021-12-21 14:23] VITALS: BP 156/79
[2021-12-21 16:15] LABS: Basophils # (auto) 0 10 ^3/uL (0-0.2); Basophils % (auto) 1.1 % (0.0-2.0); Eosinophils # (auto) 0.1 10 ^3/uL (0-0.8); Eosinophils % (auto) 3.5 % (0.0-7.0); Hematocrit 32.6 % (36.0-46.0); Hemoglobin 10.8 g/dL (12.2-16.2); Lymphocytes # (auto) 1.2 10 ^3/uL (0.4-5.4); Lymphocytes % (auto) 29.7 % (10.0-50.0); Mean Corpuscular Hemoglobin 28.4 pg (28.0-32.0); Mean Corpuscular Hgb Conc. 33.2 g/dL (32.0-36.0); Mean Corpuscular Volume 85.4 fL (80.0-100.0); Monocytes # (auto) 0.3 10 ^3/uL (0-1.3); Neutrophils # (auto) 2.5 10 ^3/uL (1.6-8.6); Neutrophils % (auto) 59.7 % (37.0-80.0); Nucleated Red Blood Cells % 0.1 %; Red Blood Cells 3.82 10^6/uL (4.0-5.20); Red Cell Distribution Width 14.5 % (11.8-14.3); White Blood Cell 4.2 10^3/uL (4.4-10.8)
[2021-12-21 16:34] LABS: Albumin 3.8 g/dL (3.4-5.0); Potassium 4.1 mmol/L (3.5-5.1)
[2021-12-21 16:36] LABS: BUN/Creatinine Ratio 19.7
[2021-12-21 16:39] LABS: Bilirubin, Total 0.4 mg/dL (0.2-1.0); Total Protein 6.6 g/dL (6.4-8.2)
== END 2021-12-21 22:16 | disposition home or self-care (01) ==
LOC: ER 13:44
DX: M71.22 Synovial cyst of popliteal space [Baker], left knee (principal); M79.89 Other specified soft tissue disorders; F17.210 Nicotine dependence, cigarettes, uncomplicated; F12.90 Cannabis use, unspecified, uncomplicated; F41.9 Anxiety disorder, unspecified; E11.9 Type 2 diabetes mellitus without complications; I10 Essential (primary) hypertension; Z90.49 Acquired absence of other specified parts of digestive tract; Z90.710 Acquired absence of both cervix and uterus; Z79.84 Long term (current) use of oral hypoglycemic drugs
CPT/HCPCS: 36415; 71045; 80053; 82962; 83880; 84484; 85025; 93971

== ENCOUNTER 2021-12-31 13:15 | Emergency (ER) | payer MEDICAID ==
[~2021-12-31] VITALS: Ht 162.6 cm; Wt 63.5 kg
[2021-12-31 14:21] LABS: Basophils # (auto) 0 10 ^3/uL (0-0.2); Basophils % (auto) 1.1 % (0.0-2.0); Eosinophils # (auto) 0.2 10 ^3/uL (0-0.8); Eosinophils % (auto) 4.2 % (0.0-7.0); Hematocrit 33.3 % (36.0-46.0); Hemoglobin 10.8 g/dL (12.2-16.2); Mean Corpuscular Hemoglobin 27.9 pg (28.0-32.0); Mean Corpuscular Hgb Conc. 32.5 g/dL (32.0-36.0); Monocytes # (auto) 0.2 10 ^3/uL (0-1.3); Monocytes % (auto) 6.3 % (0.0-12.0); Neutrophils # (auto) 2.4 10 ^3/uL (1.6-8.6); Neutrophils % (auto) 63.4 % (37.0-80.0); Nucleated Red Blood Cells % 0.1 %; Red Blood Cells 3.87 10^6/uL (4.0-5.20); Red Cell Distribution Width 14.7 % (11.8-14.3); White Blood Cell 3.8 10^3/uL (4.4-10.8)
[2021-12-31] MEDS ORDERED: ACETAMINOPHEN 325 MG TAB PO ONE (14:30)
[2021-12-31] MEDS ORDERED: KETOROLAC TROMETH 30 MG/ML 1ML VIAL IM ONE (14:30)
[2021-12-31 14:45] LABS: Albumin 3.6 g/dL (3.4-5.0); BUN/Creatinine Ratio 21.6; Bilirubin, Total 0.4 mg/dL (0.2-1.0); Calcium 9.1 mg/dL (8.5-10.1); Potassium 4.1 mmol/L (3.5-5.1); Total Protein 6.7 g/dL (6.4-8.2)
[2021-12-31 14:46] LABS: Urine Bacteria FEW /hpf (None Seen); Urine Blood Negative /uL (Negative); Urine Specific Gravity 1.019 (1.001-1.035); Urine WBC 1 /hpf (0 - 5)
[2021-12-31] MEDS ORDERED: FAMOTIDINE 20 MG TAB PO ONE (15:00)
[2021-12-31] MEDS ORDERED: MORPHINE SULF 15mg ER tab PO ONE (17:00)
[2021-12-31] MEDS ORDERED: MORP15TA PO (17:27)
[2021-12-31] MEDS ORDERED: ACET-1079 PO (17:27)
[2021-12-31] MEDS ORDERED: IBUP400T22 PO (17:27)
[2021-12-31] MEDS ORDERED: CEPH-510 PO (17:30)
[2021-12-31] MEDS ORDERED: CEPHALEXIN 250 MG CAP PO ONE (17:30)
[2021-12-31 17:45] VITALS: BP 166/78
== END 2021-12-31 18:37 | disposition home or self-care (01) ==
LOC: ER 13:15
DX: D49.511 Neoplasm of unspecified behavior of right kidney (principal); L03.90 Cellulitis, unspecified; M71.22 Synovial cyst of popliteal space [Baker], left knee; N39.0 Urinary tract infection, site not specified; F41.9 Anxiety disorder, unspecified; F17.200 Nicotine dependence, unspecified, uncomplicated; F12.90 Cannabis use, unspecified, uncomplicated; I10 Essential (primary) hypertension; E11.9 Type 2 diabetes mellitus without complications; E78.5 Hyperlipidemia, unspecified; Z90.49 Acquired absence of other specified parts of digestive tract; Z90.710 Acquired absence of both cervix and uterus; Z79.84 Long term (current) use of oral hypoglycemic drugs; Z79.899 Other long term (current) drug therapy
CPT/HCPCS: 36415; 73562; 74176; 76705; 80053; 81001; 81025; 83880; 85025; 93971; 96372; 99285; J1885

== ENCOUNTER 2022-01-07 01:11 | Inpatient (IN) | payer MEDICAID ==
[~2022-01-07] VITALS: Ht 162.6 cm; Wt 60.3 kg
[~2022-01-07 01:11] MED LIST changes: +ACET-1079 PO; +CEPH-510 PO; +IBUP400T22 PO; +MORP15TA PO
[2022-01-07 02:40] LABS: Basophils # (auto) 0 10 ^3/uL (0-0.2); Basophils % (auto) 0.5 % (0.0-2.0); Eosinophils # (auto) 0.1 10 ^3/uL (0-0.8); Eosinophils % (auto) 1.3 % (0.0-7.0); Hematocrit 34.1 % (36.0-46.0); Lymphocytes # (auto) 1.1 10 ^3/uL (0.4-5.4); Lymphocytes % (auto) 15.8 % (10.0-50.0); Mean Corpuscular Hemoglobin 27.6 pg (28.0-32.0); Mean Corpuscular Hgb Conc. 32.2 g/dL (32.0-36.0); Mean Corpuscular Volume 85.8 fL (80.0-100.0); Monocytes # (auto) 0.4 10 ^3/uL (0-1.3); Monocytes % (auto) 5.2 % (0.0-12.0); Neutrophils # (auto) 5.4 10 ^3/uL (1.6-8.6); Neutrophils % (auto) 77.2 % (37.0-80.0); Nucleated Red Blood Cells % 0.1 %; Red Blood Cells 3.97 10^6/uL (4.0-5.20)
[2022-01-07 03:03] LABS: Albumin 3.7 g/dL (3.4-5.0); Calcium 9.1 mg/dL (8.5-10.1); Potassium 4.1 mmol/L (3.5-5.1)
[2022-01-07 03:06] LABS: BUN/Creatinine Ratio 26.2; Bilirubin, Total 0.3 mg/dL (0.2-1.0); Total Protein 7.3 g/dL (6.4-8.2)
[2022-01-07] MEDS ORDERED: LORazepam 2MG/ML-1ML VIAL IV ONE (09:30)
[2022-01-07] MEDS ORDERED: ONDANSETRON HCL 4 MG/2 ML VIAL IV ONE (14:45)
[2022-01-07] MEDS ORDERED: HYDROmorphone HCL 2 MG/ML VL/or syr IV ONE (14:45)
[2022-01-07] MEDS ORDERED: SODIUM CHLORIDE 0.9% 1,000 ML IV ONE (14:45)
[2022-01-07] MEDS ORDERED: MAGNESIUM CITRATE SOLUTION 300 ML BTL PO SCH (16:15)
[2022-01-07] MEDS ORDERED: DEXTROSE (50%) 50ML SYRG IV PRN (16:15)
[2022-01-07] MEDS ORDERED: ACETAMINOPHEN 325 MG TAB PO PRN (16:15)
[2022-01-07] MEDS ORDERED: IBUPROFEN 400 MG TAB PO PRN (18:00)
[2022-01-07] MEDS: DOCUSATE SOD 100 MG CAP PO SCH (23:01)
[2022-01-07] MEDS: POLYETHYLENE GLYCOL 17 GM PWDR PO SCH (23:03)
[2022-01-07] MEDS: InsuLIN REG 1unit/0.01ml Soln (100units/ml) SC SCH (23:08)
[2022-01-08 04:19] LABS: Basophils # (auto) 0 10 ^3/uL (0-0.2); Basophils % (auto) 0.6 % (0.0-2.0); Eosinophils # (auto) 0.3 10 ^3/uL (0-0.8); Eosinophils % (auto) 5.5 % (0.0-7.0); Hematocrit 32.1 % (36.0-46.0); Hemoglobin 10.2 g/dL (12.2-16.2); Lymphocytes # (auto) 1.3 10 ^3/uL (0.4-5.4); Lymphocytes % (auto) 20.6 % (10.0-50.0); Mean Corpuscular Hemoglobin 27.4 pg (28.0-32.0); Mean Corpuscular Hgb Conc. 31.9 g/dL (32.0-36.0); Mean Corpuscular Volume 85.9 fL (80.0-100.0); Monocytes # (auto) 0.5 10 ^3/uL (0-1.3); Monocytes % (auto) 7.7 % (0.0-12.0); Neutrophils # (auto) 4.1 10 ^3/uL (1.6-8.6); Neutrophils % (auto) 65.6 % (37.0-80.0); Nucleated Red Blood Cells % 0.1 %; Red Blood Cells 3.73 10^6/uL (4.0-5.20); Red Cell Distribution Width 14.9 % (11.8-14.3); White Blood Cell 6.3 10^3/uL (4.4-10.8)
[2022-01-08 04:33] LABS: Albumin 3.3 g/dL (3.4-5.0); Calcium 8.9 mg/dL (8.5-10.1); Potassium 4.4 mmol/L (3.5-5.1)
[2022-01-08 04:36] LABS: BUN/Creatinine Ratio 27.8; Bilirubin, Total 0.3 mg/dL (0.2-1.0); Total Protein 6.4 g/dL (6.4-8.2)
[2022-01-08 05:57] VITALS: BP 180/93
[2022-01-08] MEDS: glipiZIDE 5 MG TAB PO SCH ×3 (07:00→17:55)
[2022-01-08] MEDS: InsuLIN REG 1unit/0.01ml Soln (100units/ml) SC SCH ×5 (07:00→21:34)
[2022-01-08] MEDS: SUCRALFATE 1 GM TAB PO SCH ×3 (07:00→17:00)
[2022-01-08] MEDS: ACCU-CHEK COMFORT CURVE STRIP VI SCH ×5 (07:00→21:31)
[2022-01-08] MEDS ORDERED: hydrALAZINE HCL 25 MG TAB PO PRN (07:00)
[2022-01-08] MEDS: PANTOPRAZOLE 40 MG TAB PO SCH (07:10)
[2022-01-08] MEDS: MORPHINE SULFATE INJ 2 MG/ml SYRG IV PRN ×3 (08:36→21:33)
[2022-01-08 09:11] VITALS: BP 170/93
[2022-01-08] MEDS: DOCUSATE SOD 100 MG CAP PO SCH ×2 (09:45→21:30)
[2022-01-08] MEDS: MAGNESIUM OXIDE 400 MG TAB PO SCH (09:45)
[2022-01-08] MEDS: LORATADINE 10 MG TAB PO SCH (09:46)
[2022-01-08] MEDS: POLYETHYLENE GLYCOL 17 GM PWDR PO SCH ×2 (09:46→21:30)
[2022-01-08 12:34] VITALS: BP 169/87
[2022-01-08 16:38] VITALS: BP 157/90
[2022-01-08] MEDS: hydrALAZINE HCL 20 MG/ML VL IV PRN (19:19)
[2022-01-08] MEDS: LACTULOSE 20Gm/30ML SOLN PO SCH (21:30)
[2022-01-08 22:00] VITALS: BP 174/61
[2022-01-09] MEDS: MORPHINE SULFATE INJ 2 MG/ml SYRG IV PRN ×5 (02:14→20:54)
[2022-01-09 05:00] VITALS: BP_SYST 125; BP_SYST 164; BP_DIAS 64; BP_DIAS 83
[2022-01-09] MEDS: glipiZIDE 5 MG TAB PO SCH ×2 (06:43→17:49)
[2022-01-09] MEDS: PANTOPRAZOLE 40 MG TAB PO SCH (06:43)
[2022-01-09] MEDS: SUCRALFATE 1 GM TAB PO SCH ×2 (06:43→17:00)
[2022-01-09] MEDS: InsuLIN REG 1unit/0.01ml Soln (100units/ml) SC SCH ×4 (06:44→22:27)
[2022-01-09] MEDS: ACCU-CHEK COMFORT CURVE STRIP VI SCH ×4 (06:44→22:22)
[2022-01-09 08:31] VITALS: BP 168/85
[2022-01-09] MEDS: hydrALAZINE HCL 20 MG/ML VL IV PRN (09:20)
[2022-01-09] MEDS: LACTULOSE 20Gm/30ML SOLN PO SCH ×2 (09:24→21:16)
[2022-01-09] MEDS: MAGNESIUM OXIDE 400 MG TAB PO SCH (09:25)
[2022-01-09] MEDS: DOCUSATE SOD 100 MG CAP PO SCH ×2 (09:25→21:17)
[2022-01-09] MEDS: LORATADINE 10 MG TAB PO SCH (09:25)
[2022-01-09] MEDS: FUROSEMIDE 20 MG TAB PO SCH (09:25)
[2022-01-09] MEDS: POLYETHYLENE GLYCOL 17 GM PWDR PO SCH ×2 (09:26→21:17)
[2022-01-09 12:37] VITALS: BP 151/84
[2022-01-09] MEDS ORDERED: GOLYTELY 4L KIT PO ONE (14:30)
[2022-01-09 16:42] VITALS: BP 125/83
[2022-01-09 20:00] VITALS: BP 138/69
[2022-01-10 00:33] VITALS: BP 138/69
[2022-01-10] MEDS: MORPHINE SULFATE INJ 2 MG/ml SYRG IV PRN ×4 (01:34→15:04)
[2022-01-10] MEDS: ACCU-CHEK COMFORT CURVE STRIP VI SCH ×4 (06:13→22:18)
[2022-01-10] MEDS: SUCRALFATE 1 GM TAB PO SCH ×2 (06:15→16:54)
[2022-01-10] MEDS: PANTOPRAZOLE 40 MG TAB PO SCH (06:16)
[2022-01-10 06:17] VITALS: BP 106/52
[2022-01-10] MEDS: InsuLIN REG 1unit/0.01ml Soln (100units/ml) SC SCH ×4 (06:17→22:19)
[2022-01-10] MEDS: glipiZIDE 5 MG TAB PO SCH ×2 (06:18→18:52)
[2022-01-10] MEDS: hydrALAZINE HCL 20 MG/ML VL IV PRN (06:28)
[2022-01-10 09:49] VITALS: BP 119/97
[2022-01-10] MEDS: LORATADINE 10 MG TAB PO SCH (10:00)
[2022-01-10] MEDS: FUROSEMIDE 20 MG TAB PO SCH (10:00)
[2022-01-10] MEDS: DOCUSATE SOD 100 MG CAP PO SCH ×2 (10:00→22:17)
[2022-01-10] MEDS: LACTULOSE 20Gm/30ML SOLN PO SCH ×2 (10:00→22:17)
[2022-01-10] MEDS: POLYETHYLENE GLYCOL 17 GM PWDR PO SCH ×2 (10:00→22:17)
[2022-01-10] MEDS: MAGNESIUM OXIDE 400 MG TAB PO SCH (10:00)
[2022-01-10 12:08] VITALS: BP 155/78
[2022-01-10] MEDS: HYDROmorphone HCL 2 MG/ML VL/or syr IV PRN ×2 (19:07→22:26)
[2022-01-10 21:23] VITALS: BP_SYST 126; BP_DIAS 71; BP_DIAS 72
[2022-01-11] MEDS: HYDROmorphone HCL 2 MG/ML VL/or syr IV PRN ×6 (02:10→22:21)
[2022-01-11 05:17] VITALS: BP 129/63
[2022-01-11] MEDS: InsuLIN REG 1unit/0.01ml Soln (100units/ml) SC SCH ×4 (06:10→22:23)
[2022-01-11] MEDS: ACCU-CHEK COMFORT CURVE STRIP VI SCH ×4 (06:10→22:21)
[2022-01-11] MEDS: glipiZIDE 5 MG TAB PO SCH ×2 (06:11→17:40)
[2022-01-11] MEDS ORDERED: FLEET ENEMA(ADULT) 135 ML PR ONE (06:15)
[2022-01-11] MEDS: PANTOPRAZOLE 40 MG TAB PO SCH (06:24)
[2022-01-11 06:27] LABS: BUN/Creatinine Ratio 25.8; Calcium 9.2 mg/dL (8.5-10.1); Potassium 4.4 mmol/L (3.5-5.1)
[2022-01-11 09:00] VITALS: BP 146/77
[2022-01-11] MEDS: MAGNESIUM OXIDE 400 MG TAB PO SCH (10:21)
[2022-01-11] MEDS: LACTULOSE 20Gm/30ML SOLN PO SCH ×2 (10:21→22:22)
[2022-01-11] MEDS: DOCUSATE SOD 100 MG CAP PO SCH ×2 (10:22→22:22)
[2022-01-11] MEDS: LORATADINE 10 MG TAB PO SCH (10:22)
[2022-01-11] MEDS: FUROSEMIDE 20 MG TAB PO SCH (10:23)
[2022-01-11] MEDS: POLYETHYLENE GLYCOL 17 GM PWDR PO SCH ×2 (10:33→22:22)
[2022-01-11 13:00] VITALS: BP 135/74
[2022-01-11 16:34] VITALS: BP 133/71
[2022-01-11 22:00] VITALS: BP 149/78
[2022-01-12] MEDS: HYDROmorphone HCL 2 MG/ML VL/or syr IV PRN ×6 (02:13→23:59)
[2022-01-12 05:00] VITALS: BP 122/72
[2022-01-12] MEDS: PANTOPRAZOLE 40 MG TAB PO SCH (06:12)
[2022-01-12] MEDS: InsuLIN REG 1unit/0.01ml Soln (100units/ml) SC SCH ×4 (06:13→21:15)
[2022-01-12] MEDS: ACCU-CHEK COMFORT CURVE STRIP VI SCH ×4 (06:13→21:15)
[2022-01-12] MEDS: glipiZIDE 5 MG TAB PO SCH ×2 (06:13→18:00)
[2022-01-12 09:00] VITALS: BP 134/74
[2022-01-12] MEDS ORDERED: FLEET ENEMA(ADULT) 135 ML PR ONE (09:30)
[2022-01-12] MEDS: LACTULOSE 20Gm/30ML SOLN PO SCH ×2 (09:36→21:15)
[2022-01-12] MEDS: POLYETHYLENE GLYCOL 17 GM PWDR PO SCH ×2 (09:36→21:14)
[2022-01-12] MEDS: LORATADINE 10 MG TAB PO SCH (09:37)
[2022-01-12] MEDS: MAGNESIUM OXIDE 400 MG TAB PO SCH (09:37)
[2022-01-12] MEDS: DOCUSATE SOD 100 MG CAP PO SCH ×2 (09:43→21:15)
[2022-01-12] MEDS: FUROSEMIDE 20 MG TAB PO SCH (09:43)
[2022-01-12 13:00] VITALS: BP 138/78
[2022-01-12 16:29] VITALS: BP 149/79
[2022-01-12 22:00] VITALS: BP 128/66
[2022-01-13] MEDS: HYDROmorphone HCL 2 MG/ML VL/or syr IV PRN ×3 (04:30→12:09)
[2022-01-13 04:54] VITALS: BP 153/77
[2022-01-13] MEDS: ACCU-CHEK COMFORT CURVE STRIP VI SCH ×2 (06:39→11:30)
[2022-01-13] MEDS: InsuLIN REG 1unit/0.01ml Soln (100units/ml) SC SCH ×2 (06:39→11:30)
[2022-01-13] MEDS: glipiZIDE 5 MG TAB PO SCH (06:50)
[2022-01-13] MEDS: PANTOPRAZOLE 40 MG TAB PO SCH (06:50)
[2022-01-13 08:00] VITALS: BP 134/74
[2022-01-13] MEDS: POLYETHYLENE GLYCOL 17 GM PWDR PO SCH (08:56)
[2022-01-13] MEDS: DOCUSATE SOD 100 MG CAP PO SCH (08:58)
[2022-01-13] MEDS: LORATADINE 10 MG TAB PO SCH (08:58)
[2022-01-13] MEDS: MAGNESIUM OXIDE 400 MG TAB PO SCH (08:58)
[2022-01-13] MEDS: FUROSEMIDE 20 MG TAB PO SCH (08:59)
[2022-01-13] MEDS: LACTULOSE 20Gm/30ML SOLN PO SCH (08:59)
[2022-01-13 09:00] VITALS: BP 132/76
[2022-01-13] MEDS ORDERED: FLEET ENEMA(ADULT) 135 ML PR SCH (10:00)
[2022-01-13 13:00] VITALS: BP 134/54
== END 2022-01-13 14:39 | disposition home or self-care (01) | DRG 254 ==
LOC: ER 01:11 → OVERFLOW 16:06 → WEST WING 01-08 05:49
PROVIDERS: ADMIT Internal Medicine; ATTEND Internal Medicine
DX: K59.00 Constipation, unspecified (principal); N17.9 Acute kidney failure, unspecified; D63.8 Anemia in other chronic diseases classified elsewhere; K29.70 Gastritis, unspecified, without bleeding; E86.0 Dehydration; E11.21 Type 2 diabetes mellitus with diabetic nephropathy; E66.9 Obesity, unspecified; E89.0 Postprocedural hypothyroidism; F17.210 Nicotine dependence, cigarettes, uncomplicated; Z20.822 Contact with and (suspected) exposure to COVID-19; F32.9 Major depressive disorder, single episode, unspecified; F41.1 Generalized anxiety disorder; I10 Essential (primary) hypertension; G89.29 Other chronic pain; Z90.710 Acquired absence of both cervix and uterus; Z80.3 Family history of malignant neoplasm of breast; Z90.49 Acquired absence of other specified parts of digestive tract; Z68.28 Body mass index [BMI] 28.0-28.9, adult
CPT/HCPCS: 36415; 74176; 80048; 80053; 82962; 83690; 84443; 85025; 87426; 97116; 97163; G0378; J1815

== ENCOUNTER 2022-01-25 04:22 | Emergency (ER) | payer MEDICAID ==
[~2022-01-25] VITALS: Ht 162.6 cm; Wt 64.0 kg
[~2022-01-25 04:22] MED LIST changes: -CEPH-510 PO; -MORP15TA PO; -PANT40TA2 PO
[2022-01-25 05:30] LABS: Basophils # (auto) 0.1 10 ^3/uL (0-0.2); Basophils % (auto) 1.4 % (0.0-2.0); Eosinophils # (auto) 0.3 10 ^3/uL (0-0.8); Eosinophils % (auto) 6.9 % (0.0-7.0); Hematocrit 31.6 % (36.0-46.0); Hemoglobin 10.4 g/dL (12.2-16.2); Lymphocytes # (auto) 1.4 10 ^3/uL (0.4-5.4); Lymphocytes % (auto) 37.2 % (10.0-50.0); Mean Corpuscular Hemoglobin 28.5 pg (28.0-32.0); Mean Corpuscular Hgb Conc. 33.1 g/dL (32.0-36.0); Mean Corpuscular Volume 86.2 fL (80.0-100.0); Monocytes # (auto) 0.3 10 ^3/uL (0-1.3); Monocytes % (auto) 7.9 % (0.0-12.0); Neutrophils # (auto) 1.8 10 ^3/uL (1.6-8.6); Neutrophils % (auto) 46.6 % (37.0-80.0); Nucleated Red Blood Cells % 0.1 %; Red Blood Cells 3.66 10^6/uL (4.0-5.20); Red Cell Distribution Width 14.9 % (11.8-14.3); White Blood Cell 3.9 10^3/uL (4.4-10.8)
[2022-01-25 05:46] LABS: INR 0.97 (0.9-1.15)
[2022-01-25 05:58] LABS: Albumin 3.4 g/dL (3.4-5.0); BUN/Creatinine Ratio 24.4; Calcium 8.8 mg/dL (8.5-10.1); Magnesium 1.8 mg/dL (1.6-2.6); Potassium 4.2 mmol/L (3.5-5.1)
[2022-01-25 06:10] LABS: Bilirubin, Total 0.3 mg/dL (0.2-1.0); Total Protein 6.2 g/dL (6.4-8.2)
[2022-01-25] MEDS ORDERED: ALPRAZolam 0.25 MG TAB PO ONE (08:00)
[2022-01-25] MEDS ORDERED: HYDROcodone-ACET 5/325MG TAB PO ONE (08:00)
[2022-01-25 08:28] VITALS: BP 119/83
== END 2022-01-25 08:41 | disposition home or self-care (01) ==
LOC: ER 04:26
DX: F41.9 Anxiety disorder, unspecified (principal); L29.9 Pruritus, unspecified; I10 Essential (primary) hypertension; E11.9 Type 2 diabetes mellitus without complications; E78.5 Hyperlipidemia, unspecified; F17.210 Nicotine dependence, cigarettes, uncomplicated; Z90.49 Acquired absence of other specified parts of digestive tract; Z90.710 Acquired absence of both cervix and uterus; Z90.89 Acquired absence of other organs; Z79.1 Long term (current) use of non-steroidal anti-inflammatories (NSAID); Z79.899 Other long term (current) drug therapy
CPT/HCPCS: 36415; 71045; 80053; 83735; 83880; 84484; 85025; 85610; 85730; 93005

== ENCOUNTER 2022-04-24 03:23 | Emergency (ER) | payer MEDICAID ==
[~2022-04-24] VITALS: Ht 162.6 cm; Wt 73.8 kg
[2022-04-24 04:43] LABS: Albumin 3.5 g/dL (3.4-5.0); BUN/Creatinine Ratio 24.8; Calcium 9.1 mg/dL (8.5-10.1)
[2022-04-24 04:46] LABS: Bilirubin, Total 0.2 mg/dL (0.2-1.0)
[2022-04-24 04:50] LABS: Hemoglobin 10.7 g/dL (12.2-16.2)
[2022-04-24 05:03] LABS: Basophils # (auto) 0 10 ^3/uL (0-0.2); Basophils % (auto) 0.8 % (0.0-2.0); Eosinophils # (auto) 0.3 10 ^3/uL (0-0.8); Eosinophils % (auto) 6.1 % (0.0-7.0); Hematocrit 32.1 % (36.0-46.0); Lymphocytes # (auto) 1.3 10 ^3/uL (0.4-5.4); Lymphocytes % (auto) 29.3 % (10.0-50.0); Mean Corpuscular Hemoglobin 28.8 pg (28.0-32.0); Mean Corpuscular Hgb Conc. 33.4 g/dL (32.0-36.0); Mean Corpuscular Volume 86.2 fL (80.0-100.0); Monocytes # (auto) 0.3 10 ^3/uL (0-1.3); Monocytes % (auto) 6.5 % (0.0-12.0); Neutrophils # (auto) 2.6 10 ^3/uL (1.6-8.6); Neutrophils % (auto) 57.3 % (37.0-80.0); Nucleated Red Blood Cells % 0.3 %; Red Blood Cells 3.73 10^6/uL (4.0-5.20); Red Cell Distribution Width 14.9 % (11.8-14.3); White Blood Cell 4.6 10^3/uL (4.4-10.8)
[2022-04-24] MEDS ORDERED: HYDROcodone-ACET 10/325MG TAB PO ONE (07:00)
[2022-04-24 09:17] VITALS: BP 143/89
== END 2022-04-24 09:26 | disposition home or self-care (01) ==
LOC: ER 03:23
DX: R07.89 Other chest pain (principal); F17.210 Nicotine dependence, cigarettes, uncomplicated; F12.10 Cannabis abuse, uncomplicated; E11.9 Type 2 diabetes mellitus without complications; E78.5 Hyperlipidemia, unspecified; I10 Essential (primary) hypertension; Z90.49 Acquired absence of other specified parts of digestive tract; Z90.710 Acquired absence of both cervix and uterus
CPT/HCPCS: 36415; 71046; 80053; 83690; 84484; 85025; 93005

== ENCOUNTER → 2022-08-24 | Emergency (ER) | payer MEDICAID ==
[~2022-08-24] VITALS: Ht 162.6 cm; Wt 77.9 kg
[~2022-08-24] MED LIST changes: +IBUP-1453 PO; -IBUP400T22 PO; +OXYCODONE W/ ACETAMINOPHEN 5/325MG TABLET PO ONE
[2022-08-24 14:17] LABS: Basophils # (auto) 0 10 ^3/uL (0-0.2); Basophils % (auto) 0.4 % (0.0-2.0); Eosinophils # (auto) 0 10 ^3/uL (0-0.8); Eosinophils % (auto) 0.9 % (0.0-7.0); Hematocrit 37.7 % (36.0-46.0); Hemoglobin 12.3 g/dL (12.2-16.2); Lymphocytes # (auto) 1.2 10 ^3/uL (0.4-5.4); Lymphocytes % (auto) 27.6 % (10.0-50.0); Mean Corpuscular Hemoglobin 27.4 pg (28.0-32.0); Mean Corpuscular Hgb Conc. 32.5 g/dL (32.0-36.0); Mean Corpuscular Volume 84.3 fL (80.0-100.0); Monocytes # (auto) 0.3 10 ^3/uL (0-1.3); Monocytes % (auto) 6.2 % (0.0-12.0); Neutrophils # (auto) 2.8 10 ^3/uL (1.6-8.6); Neutrophils % (auto) 64.9 % (37.0-80.0); Nucleated Red Blood Cells % 0.1 %; Red Blood Cells 4.48 10^6/uL (4.0-5.20); Red Cell Distribution Width 15.7 % (11.8-14.3); White Blood Cell 4.4 10^3/uL (4.4-10.8)
[2022-08-24 15:07] LABS: Potassium 4.9 mmol/L (3.5-5.1)
[2022-08-24 15:15] LABS: Albumin 3.7 g/dL (3.4-5.0); BUN/Creatinine Ratio 23.4 (10.0-20.0); Bilirubin, Total 0.5 mg/dL (0.2-1.0); Calcium 9.2 mg/dL (8.5-10.1); Total Protein 7.4 g/dL (6.4-8.2)
[2022-08-24 18:20] VITALS: BP 140/78; PULSE 70; RESP 16; TEMP 98.2; O2SAT 96
[2022-08-24 19:51] LABS: Urine Bacteria NONE SEEN /hpf (None Seen); Urine Blood Negative /uL (Negative); Urine Hyaline Cast FEW /lpf (0 - 2); Urine Mucus FEW (None Seen); Urine Specific Gravity 1.024 (1.001-1.035); Urine WBC 3 /hpf (0 - 5)
[2022-08-24 19:57] LABS: Alcohol, Urine < 3.0 mg/dL (0-10); Amphetamine Screen, Urine NEGATIVE (NEGATIVE); Barbiturate Scree,Urine NEGATIVE (NEGATIVE); Benzodiazephine Screen, Urine NEGATIVE (NEGATIVE); Cannabinoid Screen, Urine NEGATIVE (NEGATIVE); Cocaine Screen, Urine NEGATIVE (NEGATIVE); Opiate Scree,Urine NEGATIVE (NEGATIVE); Phencyclidine Screen, Urine NEGATIVE (NEGATIVE)
== END | disposition left against medical advice (07) ==
LOC: ER 13:00
DX: R06.00 Dyspnea, unspecified (principal); E11.9 Type 2 diabetes mellitus without complications; E78.5 Hyperlipidemia, unspecified; I10 Essential (primary) hypertension; F17.210 Nicotine dependence, cigarettes, uncomplicated; Z90.49 Acquired absence of other specified parts of digestive tract; Z90.710 Acquired absence of both cervix and uterus; Z79.899 Other long term (current) drug therapy
CPT/HCPCS: 36415; 36600; 71045; 80053; 80307; 81001; 82805; 83880; 84484; 85025; 85379; 93005

== ENCOUNTER 2022-11-02 11:53 | Inpatient (IN) | payer MEDICAID ==
[~2022-11-02] VITALS: Ht 167.6 cm; Wt 85.6 kg
[~2022-11-02 11:53] MED LIST changes: -OXYCODONE W/ ACETAMINOPHEN 5/325MG TABLET PO ONE
[2022-11-02] MEDS ORDERED: SODIUM CHLORIDE 0.9% 500 ML IV ONE (12:00)
[2022-11-02] MEDS ORDERED: ACETAMINOPHEN 325 MG TAB PO ONE (12:30)
[2022-11-02 12:59] LABS: Basophils # (auto) 0 10 ^3/uL (0-0.2); Basophils % (auto) 0.4 % (0.0-2.0); Eosinophils # (auto) 0.1 10 ^3/uL (0-0.8); Eosinophils % (auto) 0.7 % (0.0-7.0); Hematocrit 33.8 % (36.0-46.0); Hemoglobin 10.8 g/dL (12.2-16.2); Lymphocytes # (auto) 0.8 10 ^3/uL (0.4-5.4); Lymphocytes % (auto) 6.6 % (10.0-50.0); Mean Corpuscular Hemoglobin 27.3 pg (28.0-32.0); Mean Corpuscular Hgb Conc. 32.1 g/dL (32.0-36.0); Mean Corpuscular Volume 85.2 fL (80.0-100.0); Monocytes # (auto) 0.4 10 ^3/uL (0-1.3); Monocytes % (auto) 3.7 % (0.0-12.0); Neutrophils # (auto) 10.6 10 ^3/uL (1.6-8.6); Neutrophils % (auto) 88.6 % (37.0-80.0); Red Blood Cells 3.96 10^6/uL (4.0-5.20); Red Cell Distribution Width 15.7 % (11.8-14.3); White Blood Cell 11.9 10^3/uL (4.4-10.8)
[2022-11-02 13:21] LABS: Alanine Aminotransferase 18 U/L (7-40); Albumin 4.2 g/dL (3.2-4.8); Alkaline Phosphatase 113 U/L (46-116); Anion Gap 4 (5-15); Aspartate Aminotransferase 11 U/L (13-40); BUN/Creatinine Ratio 23.6 (10.0-20.0); Bilirubin, Total 0.4 mg/dL (0.2-1.0); Blood Urea Nitrogen 42 mg/dL (9-23); Calcium 9.2 mg/dL (8.7-10.4); Carbon Dioxide 24 mmol/L (20-30); Chloride 107 mmol/L (98-107); Glucose 173 mg/dL (74-106); Potassium 4.7 mmol/L (3.5-5.1); Sodium 135 mmol/L (136-145); Total Protein 7.3 g/dL (5.7-8.2)
[2022-11-02 13:22] VITALS: PULSE 72; RESP 17; O2SAT 92
[2022-11-02] MEDS ORDERED: AZITHROMYCIN 500MG/ 250ML 250 ML IV ONE (17:30)
[2022-11-02] MEDS ORDERED: DOCUSATE SOD 100 MG CAP PO PRN (18:30)
[2022-11-02] MEDS ORDERED: ACETAMINOPHEN 325 MG TAB PO PRN (18:30)
[2022-11-02] MEDS ORDERED: HYDROcodone-ACET 5/325MG TAB PO PRN (18:30)
[2022-11-02] MEDS ORDERED: SODIUM CHLORIDE 0.9% 1,000 ML IV SCH (18:30)
[2022-11-02] MEDS ORDERED: DEXTROSE (50%) 50ML SYRG IV PRN (18:30)
[2022-11-02] MEDS ORDERED: ONDANSETRON HCL 4 MG/2 ML VIAL IV PRN (18:30)
[2022-11-02] MEDS ORDERED: NITROGLYCERIN 0.4 MG SL TAB SL PRN (19:30)
[2022-11-02] MEDS ORDERED: MORPHINE SULFATE INJ 2 MG/ml SYRG IV PRN (19:30)
[2022-11-02 19:35] VITALS: O2SAT 93
[2022-11-02] MEDS: OXYCODONE W/ ACETAMINOPHEN 5/325MG TABLET PO PRN (20:25)
[2022-11-02] MEDS ORDERED: InsuLIN REG 1unit/0.01ml Soln (100units/ml) SC SCH (22:00)
[2022-11-02] MEDS ORDERED: FAMOTIDINE (10MG/ML) 2ML VL IV SCH (22:00)
[2022-11-02 22:20] VITALS: BP 123/71; PULSE 61; RESP 16; TEMP 98; O2SAT 92
[2022-11-02] MEDS: ACCU-CHEK COMFORT CURVE STRIP VI SCH (22:56)
[2022-11-03 00:21] VITALS: BP 123/71; PULSE 61; RESP 16; TEMP 98; O2SAT 92
[2022-11-03] MEDS ORDERED: OXY10CRT PO (01:40)
[2022-11-03] MEDS ORDERED: SEMA2INJ3 SC (01:40)
[2022-11-03] MEDS ORDERED: CITA10TA5 PO (01:40)
[2022-11-03] MEDS: OXYCODONE W/ ACETAMINOPHEN 5/325MG TABLET PO PRN (02:03)
[2022-11-03] MEDS ORDERED: HYDR-5139 PO (02:12)
[2022-11-03 02:25] LABS: Urine Bacteria NONE SEEN /hpf (None Seen); Urine Blood Negative /uL (Negative); Urine Clarity Clear (Clear); Urine Color Yellow (Yellow); Urine Protein, UAD TRACE (Negative); Urine Specific Gravity 1.025 (1.001-1.035); Urine Urobilinogen Normal (Negative); Urine WBC 17 /hpf (0 - 5); Urine pH 5.5 (5.0-8.0)
[2022-11-03 05:00] VITALS: BP 122/61; PULSE 56; RESP 18; TEMP 98.3; O2SAT 97
[2022-11-03 05:50] LABS: Basophils # (auto) 0 10 ^3/uL (0-0.2); Basophils % (auto) 0.4 % (0.0-2.0); Eosinophils # (auto) 0.4 10 ^3/uL (0-0.8); Eosinophils % (auto) 3.8 % (0.0-7.0); Hematocrit 30.9 % (36.0-46.0); Hemoglobin 10.3 g/dL (12.2-16.2); Lymphocytes % (auto) 10.5 % (10.0-50.0); Mean Corpuscular Hemoglobin 28.3 pg (28.0-32.0); Mean Corpuscular Hgb Conc. 33.3 g/dL (32.0-36.0); Mean Corpuscular Volume 84.8 fL (80.0-100.0); Monocytes # (auto) 0.5 10 ^3/uL (0-1.3); Monocytes % (auto) 5.3 % (0.0-12.0); Neutrophils # (auto) 7.5 10 ^3/uL (1.6-8.6); Nucleated Red Blood Cells % 0.1 %; Red Blood Cells 3.64 10^6/uL (4.0-5.20); White Blood Cell 9.4 10^3/uL (4.4-10.8)
[2022-11-03 06:13] LABS: Alanine Aminotransferase 15 U/L (7-40); Albumin 3.9 g/dL (3.2-4.8); Alkaline Phosphatase 111 U/L (46-116); Anion Gap 6 (5-15); Aspartate Aminotransferase 8 U/L (13-40); BUN/Creatinine Ratio 22.4 (10.0-20.0); Bilirubin, Total 0.4 mg/dL (0.2-1.0); Blood Urea Nitrogen 37 mg/dL (9-23); Carbon Dioxide 23 mmol/L (20-30); Chloride 108 mmol/L (98-107); Glucose 141 mg/dL (74-106); Potassium 4.4 mmol/L (3.5-5.1); Sodium 137 mmol/L (136-145); Total Protein 6.9 g/dL (5.7-8.2)
[2022-11-03] MEDS: ACCU-CHEK COMFORT CURVE STRIP VI SCH (06:22)
[2022-11-03] MEDS ORDERED: InsuLIN REG 1unit/0.01ml Soln (100units/ml) SC SCH (07:00)
[2022-11-03] MEDS ORDERED: AZITHROMYCIN 500MG/ 250ML 250 ML IV SCH (10:00)
== END 2022-11-03 08:45 | disposition left against medical advice (07) | DRG 139 ==
LOC: ER 11:53 → EDBD 11:53 → TELE 19:25 → TELE-CENTR 22:20
PROVIDERS: ADMIT Nurse Practitioner Family; ATTEND Nurse Practitioner Family
DX: J18.9 Pneumonia, unspecified organism (principal); J81.1 Chronic pulmonary edema; E11.65 Type 2 diabetes mellitus with hyperglycemia; F41.9 Anxiety disorder, unspecified; E78.5 Hyperlipidemia, unspecified; D72.829 Elevated white blood cell count, unspecified; Z53.29 Procedure and treatment not carried out because of patient's decision for other reasons; Z96.652 Presence of left artificial knee joint; R42 Dizziness and giddiness; R09.02 Hypoxemia; I10 Essential (primary) hypertension; J45.909 Unspecified asthma, uncomplicated; Z90.710 Acquired absence of both cervix and uterus; Z98.51 Tubal ligation status; Z90.49 Acquired absence of other specified parts of digestive tract
CPT/HCPCS: 36415; 70450; 71045; 80053; 81001; 82962; 83036; 83605; 83880; 84484; 85025; 87040; 87081; 93005; 96361; 96365; G0378; J3490

== ENCOUNTER 2023-02-22 13:28 | Emergency (ER) | payer MEDICAID ==
[~2023-02-22] VITALS: Ht 162.6 cm; Wt 79.5 kg
[~2023-02-22 13:28] MED LIST changes: +CITA10TA5 PO; +HYDR-5139 PO; +OXY10CRT PO; +SEMA2INJ3 SC
[2023-02-22] MEDS ORDERED: ALBUTEROL SULF 2.5 MG/0.5ML(0.5%) NEB SOLN NEB ONE (14:30)
[2023-02-22] MEDS ORDERED: DexAMETHasone SOD PHOS 10MG/1ML VIAL INJ IM ONE (14:30)
[2023-02-22] MEDS ORDERED: IPRATROPIUM BROM 0.5 MG/2.5ML INH SOL NEB ONE (14:30)
[2023-02-22 14:48] LABS: Basophils # (auto) 0 10 ^3/uL (0-0.2); Basophils % (auto) 0.4 % (0.0-2.0); Eosinophils # (auto) 0.3 10 ^3/uL (0-0.8); Hematocrit 30.5 % (36.0-46.0); Mean Corpuscular Hemoglobin 26.3 pg (28.0-32.0); Mean Corpuscular Hgb Conc. 31.3 g/dL (32.0-36.0); Monocytes # (auto) 0.5 10 ^3/uL (0-1.3); Red Blood Cells 3.63 10^6/uL (4.0-5.20)
[2023-02-22 14:50] LABS: Eosinophils % (auto) 4.3 % (0.0-7.0); Hemoglobin 9.5 g/dL (12.2-16.2); Lymphocytes # (auto) 1.2 10 ^3/uL (0.4-5.4); Lymphocytes % (auto) 15.1 % (10.0-50.0); Mean Corpuscular Volume 84.2 fL (80.0-100.0); Monocytes % (auto) 6.6 % (0.0-12.0); Neutrophils # (auto) 5.8 10 ^3/uL (1.6-8.6); Neutrophils % (auto) 73.6 % (37.0-80.0); Red Cell Distribution Width 16.7 % (11.8-14.3)
[2023-02-22 15:07] LABS: Alanine Aminotransferase 14 U/L (7-40); Albumin 3.9 g/dL (3.2-4.8); Alkaline Phosphatase 112 U/L (46-116); Anion Gap 7 (5-15); Aspartate Aminotransferase 11 U/L (13-40); BUN/Creatinine Ratio 26.6 (10.0-20.0); Blood Urea Nitrogen 50 mg/dL (9-23); Calcium 8.9 mg/dL (8.7-10.4); Carbon Dioxide 21 mmol/L (20-30); Chloride 109 mmol/L (98-107); Glucose 118 mg/dL (74-106); Potassium 4.9 mmol/L (3.5-5.1); Sodium 137 mmol/L (136-145)
[2023-02-22 15:08] LABS: Bilirubin, Total 0.2 mg/dL (0.2-1.0); Total Protein 6.8 g/dL (5.7-8.2)
[2023-02-22 16:37] LABS: COVID19 ANTIGEN SOFIA FIA NEGATIVE (NEGATIVE)
[2023-02-22 16:40] LABS: Urine Bacteria NONE SEEN /hpf (None Seen); Urine Blood Negative /uL (Negative); Urine Clarity HAZY (Clear); Urine Color Yellow (Yellow); Urine Hyaline Cast FEW /lpf (0 - 2); Urine Protein, UAD 1+ (Negative); Urine Specific Gravity 1.017 (1.001-1.035); Urine Urobilinogen Normal (Negative); Urine WBC 12 /hpf (0 - 5); Urine pH 5.5 (5.0-8.0)
[2023-02-22] MEDS ORDERED: NITROFURANTOIN 100 mg CAP PO ONE (19:15)
[2023-02-22] MEDS ORDERED: FURO1TAB33 PO (19:20)
[2023-02-22] MEDS ORDERED: NITR-87 PO (19:20)
[2023-02-22 19:41] VITALS: BP 187/84; PULSE 60; RESP 18; TEMP 97.8; O2SAT 98
== END 2023-02-22 19:49 | disposition home or self-care (01) ==
LOC: ER 13:28
DX: N39.0 Urinary tract infection, site not specified (principal); J81.1 Chronic pulmonary edema; D64.9 Anemia, unspecified; N28.9 Disorder of kidney and ureter, unspecified; I10 Essential (primary) hypertension; E11.9 Type 2 diabetes mellitus without complications; J45.909 Unspecified asthma, uncomplicated; E78.5 Hyperlipidemia, unspecified; Z90.49 Acquired absence of other specified parts of digestive tract; Z90.710 Acquired absence of both cervix and uterus; Z90.89 Acquired absence of other organs; Z79.1 Long term (current) use of non-steroidal anti-inflammatories (NSAID); Z79.899 Other long term (current) drug therapy; Z20.822 Contact with and (suspected) exposure to COVID-19
CPT/HCPCS: 36415; 71046; 80053; 81001; 82962; 83880; 84484; 85025; 87426; 94640; 96372; 99285; J1100; J7644; 93005

== ENCOUNTER 2024-05-04 11:31 | Inpatient (IN) | payer MEDICAID ==
[~2024-05-04] VITALS: Ht 162.6 cm; Wt 91.5 kg
[~2024-05-04 11:31] MED LIST changes: +FURO1TAB33 PO; +NITR-87 PO; -SUCR1TAB22 PO; +SUCR1TAB31 PO
--- NOTE | 2024-05-04 12:10 | ED.PDOC ---
HPI Comments HPI: 63y F who presents to the ED for chief complaint of elevated blood pressure. - pt states she woke up this AM with headache and states she checked her blood pressure and states it was high - pt states she takes HCTZ and hydralazine and states she has missed taking her BP Meds over the past 2 days but states she took her AM HTN Meds and came to the ED for further evaluation - pt states she has not taken her medications for the past 2 days due to being forgetful - pt now in the ED, denies headache and otherwise denies dizziness, chest pain, shortness of breath and no noted changes in vision, gait or speech are noted - pt is [id number] and able to answer all questions - pt BP in the ED is noted to be 208/119 with all other vitals in normal range Past Medical History: HTN, HLD, DM, anxiety, asthma Past Surgical History: cholecystectomy hysterectomy, thyroidectomy, tubal ligation medications: HCTZ, hydralazine allergies: nkda Social History: denies tobacco use, denies ETOH use, denies drug use López: HPI: Poor Historian. REVIEW OF SYSTEMS: CONSTITUTIONAL: Denies acute: fever, diaphoresis, chills, generalized weakness. HEAD: Denies acute: headache, photophobia Eyes: Denies acute: Double vision, vision loss, eye pain, eye discharge. EARS: Denies acute: tinnitus, hearing loss, ear discharge, ear pain, THROAT: Denies acute: sore throat, swelling, difficulty swallowing , pain with swallowing, change in voice. NECK: Denies acute: neck pain, neck swelling, stiff neck. HEART: Denies acute : chest pain, palpitations, LUNGS: Denies acute: SOB, wheezing, cough, hemoptysis ABDOMEN: Denies acute: abdominal pain, Nausea, Vomiting, diarrhea, melena , hematemesis, hematochezia SKIN: Denies acute: rash, redness, lesions, itchiness. EXTREMITIES: Denies acute: calf pain, numbness, tingling, weakness, denies pain in extremity. Denies acute: Low back pain. Neuro: Denies acute: focal neurological deficit, motor or sensory focal neurological deficit, tremors, seizure like activity, confusion, dizziness, change in mental status, loss of bowel or bladder function, cauda equina like symptoms. : Denies acute: dysuria, hematuria, flank pain, increase in urinary frequency. PSYCH: Denies acute: hallucination, suicidal ideation, homicidal ideation. FEMALE: Denies acute: abnormal vaginal bleeding, foul odor, unusual discharge. PHYSICAL EXAM: General: no acute distress, awake and alert. Head: normocephalic, atraumatic. Neck: supple, trachea is midline, no swelling. Throat: Normal phonation. Eyes:, no erythema, no purulent discharge, no proptosis, no icterus. Heart: regular rate, regular rhythm, no significant murmur appreciated. Lungs: no apparent respiratory distress, Able to speak in full sentences. No wheezing, no rhonchi, no crackles. No stridors Clear to auscultation bilaterally. Abdomen: non tender to palpation, non distended, soft, no guarding, no rebound, + bowel sounds. Obese Neuro: Awake, Alert, oriented to name, self, situation, follows commands GCS=15. Speech is normal. Skin: no petechia, no purpura, no cyanosis, non-pale, not jaundice. Lower extremities: --no - Pitting edema no deformity, no focal swelling, no calf TTP. Makes eye contact. moves all four extremities. Face: no apparent facial droop. ED COURSE: Chief Complaint: High Blood Pressure Time Seen by MD: 12:08 Primary Care Provider: SALONI Dubon Notes: Nurses Notes, Medications, Allergies Allergies: Coded Allergies: NO KNOWN ALLERGIES (Unverified , 04/25/21) Home Meds Active Scripts Furosemide (Lasix) 20 Mg Tb, 1 TAB PO DAILY, #30 TAB 0 Refills Prov:RUY PENA PAC 02/22/23 Nitrofurantoin Monohydrate Mac (Macrobid) 100 Mg Cap, 100 MG PO BID for 7 Days, #14 CAP Prov:RUY PENA PAC 02/22/23 Acetaminophen (Tylenol) 325 Mg Tb, 650 MG PO Q6HP PRN for 7 Days, #56 TAB Prov:DYAN MILES MD 12/31/21 Ibuprofen (Ibuprofen) 400 Mg Tab, 1 TAB PO Q6HPRN for 7 Days, #28 TAB Prov:DYAN MILES MD 12/31/21 Sucralfate (CARAFATE) 1 Gm Tab, 1 GM PO BID for 30 Days, #60 TAB Prov:CISCO CHUA MD 11/24/21 Polyethylene Glycol (MIRALAX 17GM PWD) 17 Gm Pw, 17 GRAMS PO DAILY PRN for 5 Days, #527 GRAMS Prov:AIDE ONEAL MD 05/01/21 Docusate Sodium (Colace) 100 Mg Cap, 1 CAP PO BID for 5 Days, #10 CAP Prov:AIDE ONEAL MD 05/01/21 Reported Medications Hydralazine HCl (Hydralazine Hydrochloride) 10 Mg Tab, 10 MG PO TID, TAB 11/03/22 Semaglutide (Ozempic) 2 Mg/3 Ml Inj, 2 MG SC weekly, INJ 11/03/22 Citalopram Hydrobromide (Citalopram Hydrobromide) 10 Mg Tab, 10 MG PO DAILY for 30 Days, MG 11/03/22 Oxycodone Hcl (OxyCONTIN ER Tablet) 10 Mg Tb, 10 MG PO TID, TAB 11/03/22 Loratadine (CLARITIN TABLET) 10 Mg Tb, 1 TAB PO DAILYPRN 08/11/21 Glipizide (Glipizide) 10 Mg Tab, 2 TAB PO BID 08/11/21 Magnesium Oxide (mg Supplement (Magnesium-Oxide) 400 Mg Tab, 1 TAB PO DAILYPRN 08/11/21 Magnesium Citrate (Magnesium Citrate) 1.745 Gm/30 Ml Celeste, PO UD 08/11/21 Pantoprazole Sodium Sesquihydr (Pantoprazole Sodium) 40 Mg Tab, 1 TAB PO QAM 08/11/21 Information Source: Patient Mode of Arrival: Ambulatory Past Medical History PAST MEDICAL HISTORY: Anxiety, Asthma, DM, High Lipids, HTN Surgical History: Cholecystectomy, Hysterectomy, Thyroidectomy, Tubal Ligation 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 Was a procedure done?: No CP Differential Dx Differential Diagnosis: N/A Differential Diagnosis: Other (DDX include renal disease, thyroid disease, electrolyte abnormality, increased salt intake, medications non-compliance, undiagnosed HTN, Hypertensive crisis, hypertensive urgency., drug toxicity.) X-Ray, Labs, Meds, VS Vital Signs Date Time Temp Pulse Resp B/P (MAP) Pulse Ox O2 Delivery O2 Flow Rate FiO2 05/04/24 14:00 60 17 212/98 (136) 96 05/04/24 13:43 97.8 71 17 183/77 (112) 96 97.8 05/04/24 12:40 188/74 05/04/24 12:13 97.4 64 18 162/73 (102) 94 97.4 05/04/24 12:13 64 18 94 Room Air* 0 21 05/04/24 11:54 59 05/04/24 11:53 98.9 80 18 208/119 (148) 97 98.9 Lab Test 05/04/24 14:24 05/04/24 13:26 05/04/24 12:12 Range/Units POC Glucose 113 H 70-106 mg/dl Troponin I High Sensitivity 13 13 </=34 ng/L White Blood Count 5.7 4.4-10.8 10^3/uL Red Blood Count 3.92 L 4.0-5.20 10^6/uL Hemoglobin 10.7 L 12.2-16.2 g/dL Hematocrit 32.7 L 36.0-46.0 % Mean Corpuscular Volume 83.3 80.0-100.0 fL Mean Corpuscular Hemoglobin 27.4 L 28.0-32.0 pg Mean Corpuscular Hemoglobin Concent 32.8 32.0-36.0 g/dL Red Cell Distribution Width 15.9 H 11.8-14.3 % Platelet Count 222 140-450 10^3/uL Mean Platelet Volume 8.3 6.9-10.8 fL Neutrophils (%) (Auto) 68.3 37.0-80.0 % Lymphocytes (%) (Auto) 21.3 10.0-50.0 % Monocytes (%) (Auto) 5.8 0.0-12.0 % Eosinophils (%) (Auto) 3.8 0.0-7.0 % Basophils (%) (Auto) 0.8 0.0-2.0 % Neutrophils # (Auto) 3.9 1.6-8.6 10 ^3/uL Lymphocytes # (Auto) 1.2 0.4-5.4 10 ^3/uL Monocytes # (Auto) 0.3 0-1.3 10 ^3/uL Eosinophils # (Auto) 0.2 0-0.8 10 ^3/uL Basophils # (Auto) 0 0-0.2 10 ^3/uL Nucleated Red Blood Cells 0.2 % Sodium Level 142 136-145 mmol/L Potassium Level 4.4 3.5-5.1 mmol/L Chloride Level 112 H 98-107 mmol/L Carbon Dioxide Level 24 20-31 mmol/L Anion Gap 6 5-15 Blood Urea Nitrogen 52 H 9-23 mg/dL Creatinine 2.79 H 0.550-1.02 mg/dL Glomerular Filtration Rate Calc 18 >90 mL/min BUN/Creatinine Ratio 18.6 10.0-20.0 Serum Glucose 127 H 74-106 mg/dL Calcium Level 8.9 8.7-10.4 mg/dL Total Bilirubin 0.2 0.2-1.0 mg/dL Aspartate Amino Transferase (AST) 14 13-40 U/L Alanine Aminotransferase (ALT) 12 7-40 U/L Alkaline Phosphatase 126 H 46-116 U/L Total Protein 5.9 5.7-8.2 g/dL Albumin 3.7 3.2-4.8 g/dL Current Medications Medications (Trade) Dose Ordered Sig/Shanae Route Start Time Stop Time Status Last Admin Hydralazine HCl (Apresoline Injection) 5 mg ONCE ONCE IV 05/04/24 12:00 05/04/24 12:01 DC 05/04/24 12:40 Oxycodone/ Acetaminophen (Percocet 5/ 325MG Tablet) 1 tab ONCE ONCE PO 05/04/24 14:00 05/04/24 14:01 DC 05/04/24 13:57 Sodium Chloride 1,000 ml @ 1,000 mls/hr Q1H ONCE IV 05/04/24 14:00 05/04/24 14:59 DC 05/04/24 13:[address] [address] Ph: [phone] DIAGNOSTIC IMAGING Diagnostic Imaging Report : [id number] Signed PATIENT: FELICITA STAFFORD ACCT: [id number] UNIT: [id number] : 1960 LOC: ER ROOM / BED: / AGE / SEX: 63 / F ADM STATUS: REG ER SERVICE 1159 ORDERING PHYSICIAN: FAROOQ BHAGAT DO PROCEDURE(s): HWOCT - HEAD WITHOUT CONTRAST REASON: HTN ORDER NUMBER(s): [id number], ACCESSION NUMBER(s): [id number] EXAM: CT HEAD WITHOUT CONTRAST INDICATION: HTN TECHNIQUE: CT of the head without intravenous contrast. Radiation Dose : 1. Head: CT Dose: CTDI volume is 78 mGy. Dose-length product is 1067 mGy*cm The dose indicators for CT are the volume Computed Tomography (CT) Dose Index (CTDIvol) and the Dose Length Product (DLP), and are measured in units of mGy and mGy-cm, respectively. These indicators are not patient dose, but values generated from the CT scanner acquisition factors. The report includes radiation exposure data for exposures received during this examination. COMPARISON: CT HEAD WITHOUT CONTRAST on DOS: 11/02/22 FINDINGS: There is no evidence of acute intracranial hemorrhage, extra-axial collection, mass effect, midline shift, herniation or hydrocephalus. The ventricles, sulci and cisterns are age appropriate. The barraza-white differentiation is intact. Patchy periventricular and subcortical white matter hypoattenuation is nonspecific but may be related to small vessel ischemic disease. The visualized paranasal sinuses and mastoid air cells are clear. The surrounding soft tissues and osseous structures are unremarkable. IMPRESSION: 1. No acute intracranial abnormality. Radiation optimization: All CT scans at this facility use at least one of these dose optimization techniques: automated exposure control mA and/or kV adjustment per patient size (includes targeted exams where dose is matched to clinical indication) or iterative reconstruction. ATED BY: AMBER DOLAN MD DICTATED DATE/TIME: 05/04/241250 SIGNED BY: AMBER DOLAN MD SIGNED DATE/TIME: 05/04/24 [address] CC: [place] [id number] Ph: [phone] DIAGNOSTIC IMAGING Diagnostic Imaging Report : [id number] Signed PATIENT: FELICITA STAFFORD ACCT: [id number] UNIT: [id number] : 1960 LOC: ER ROOM / BED: / AGE / SEX: 63 / F ADM STATUS: REG ER SERVICE 1159 ORDERING PHYSICIAN: FAROOQ BHAGAT DO PROCEDURE(s): CXRP - CHEST PORTABLE REASON: HTN ORDER NUMBER(s): [id number], ACCESSION NUMBER(s): [id number] CHEST RADIOGRAPH Indication: HTN Technique: Single frontal view of the chest was obtained COMPARISON: XY CHEST PORTABLE on DOS: 11/02/22, XY CHEST PORTABLE on DOS: 08/24/22, CHEST PORTABLE on DOS: 01/25/22, CXRP on DOS: 01/25/22, CXR1 on DOS: 12/21/21 FINDINGS: Lines and Tubes: None Lungs: Clear Pleura: No effusion. No pneumothorax. Cardiomediastinal contours: Unremarkable Bones: Unremarkable IMPRESSION: 1. No acute disease. ATED BY: AMBER DOLAN MD DICTATED DATE/TIME: 05/04/241243 SIGNED BY: AMBER DOLAN MD SIGNED DATE/TIME: 05/04/241243 CC: Time of 1ST Reevaluation: 22:39 Reevaluation 1ST: Improved Patient Education/Counseling: Diagnosis, Treatment Family Education/Counseling: No Family Present Comments Patient presented with the above HPI.---hypertensive crisis---workup was initiated. patient was found with the above mentioned diagnosis. the following medications were ordered: please refer to order lists of meds and tests obtained by myself Dr. Bhagat. Patient ED course and VS have been stabilized. Patient has been reassessed in the ED and remained in a stable condition. Pertinent incidental findings were discussed with the patient and/or family. Patient/family voices understanding and is agreeable with plan. Patient has been observed in the ED adequate length of time to insure improvement/stability. Escalation of care considered: Consideration of escalation to observation or admission Patient was ADMITTED to the medicine team for further evaluation and treatment of their presentation. Patient was found with acute renal insufficiency. Fluid hydration was given. Multiple antihypertensive medications were given for blood pressure control. All the reports of any imaging studies that were ordered by myself were reviewed by myself. Departure 1 Departure Time of Disposition: 12:12 Impression: Primary Impression: Hypertensive crisis Additional Impressions: Noncompliance with medication regimen Acute renal injury Anemia Disposition: 09 ADMITTED INPATIENT Admit to: Tele Condition: Guarded Discharged With: Self Critical Care Note Critical Care Time?: Yes (45 min-critical care time only) Heart Score Heart Score: Heart Score Response (Comments) Value History Slightly Suspicious 0 EKG Normal 0 Age 45-64 1 Risk Factors >3 or Hx ASHD 2 Troponin Normal limit 0 Total 3 I personally scribed for FAROOQ BHAGAT DO ([email or web address]) on 05/04/24 at 12:10. Electronically submitted by Alexander Martinez ([facility]). I personally scribed for FAROOQ BHAGAT DO ([email or web address]) on 05/04/24 at 14:13. Electronically submitted by Alexander Martinez ([facility]). FAROOQ BHAGAT DO May 04, 2024 12:10
[2024-05-04 12:13] VITALS: PULSE 64; RESP 18; O2SAT 94
[2024-05-04 12:27] LABS: Basophils # (auto) 0 10 ^3/uL (0-0.2); Basophils % (auto) 0.8 % (0.0-2.0); Eosinophils # (auto) 0.2 10 ^3/uL (0-0.8); Eosinophils % (auto) 3.8 % (0.0-7.0); Hematocrit 32.7 % (36.0-46.0); Hemoglobin 10.7 g/dL (12.2-16.2); Lymphocytes # (auto) 1.2 10 ^3/uL (0.4-5.4); Lymphocytes % (auto) 21.3 % (10.0-50.0); Mean Corpuscular Hemoglobin 27.4 pg (28.0-32.0); Mean Corpuscular Hgb Conc. 32.8 g/dL (32.0-36.0); Mean Corpuscular Volume 83.3 fL (80.0-100.0); Monocytes # (auto) 0.3 10 ^3/uL (0-1.3); Monocytes % (auto) 5.8 % (0.0-12.0); Neutrophils # (auto) 3.9 10 ^3/uL (1.6-8.6); Neutrophils % (auto) 68.3 % (37.0-80.0); Nucleated Red Blood Cells % 0.2 %; Platelet Count (auto) 222 10^3/uL (140-450); Red Blood Cells 3.92 10^6/uL (4.0-5.20); Red Cell Distribution Width 15.9 % (11.8-14.3); White Blood Cell 5.7 10^3/uL (4.4-10.8)
[2024-05-04 12:40] LABS: Alanine Aminotransferase 12 U/L (7-40); Albumin 3.7 g/dL (3.2-4.8); Anion Gap 6 (5-15); Aspartate Aminotransferase 14 U/L (13-40); BUN/Creatinine Ratio 18.6 (10.0-20.0); Calcium 8.9 mg/dL (8.7-10.4); Carbon Dioxide 24 mmol/L (20-31); Potassium 4.4 mmol/L (3.5-5.1); Sodium 142 mmol/L (136-145); Total Protein 5.9 g/dL (5.7-8.2)
[2024-05-04] MEDS: hydrALAZINE HCL 20 MG/ML VL IV ONE (12:40)
--- NOTE | 2024-05-04 12:46 | DVH ---
CHEST RADIOGRAPH Indication: HTN Technique: Single frontal view of the chest was obtained COMPARISON: XY CHEST PORTABLE on DOS: 11/02/22, XY CHEST PORTABLE on DOS: 08/24/22, CHEST PORTABLE on D OS: 01/25/22, CXRP on DOS: 01/25/22, CXR1 on DOS: 12/21/21 FINDINGS: Lines and Tubes: None Lungs: Clear Pleura: No effusion. No pneumothorax. Cardiomediastinal contours: Unremarkable Bones: Unremarkable IMPRESSION: 1. No acute disease.
[2024-05-04 12:47] LABS: Alkaline Phosphatase 126 U/L (46-116); Bilirubin, Total 0.2 mg/dL (0.2-1.0); Blood Urea Nitrogen 52 mg/dL (9-23); Chloride 112 mmol/L (98-107); Glucose 127 mg/dL (74-106)
--- NOTE | 2024-05-04 12:53 | DVH ---
EXAM: CT HEAD WITHOUT CONTRAST INDICATION: HTN TECHNIQUE: CT of the head without intravenous contrast. Radiation Dose : 1. Head: CT Dose: CTDI volume is 78 mGy. Dose-length product is 1067 mGy*cm The dose indicators for CT are the volume Computed Tomography (CT) Dose Index (CTDIvol) and the Dose Length Product (DLP), and are measured in units of mGy and mGy-cm, respectively. These indicators are not patient dose, but values generated from the CT scanner acquisition factors. The report includes radiation exposure data for exposures received during this examination. COMPARISON: CT HEAD WITHOUT CONTRAST on DOS: 11/02/22 FINDINGS: There is no evidence of acute intracranial hemorrhage, extra-axial collection, mass effect, midline s hift, herniation or hydrocephalus. The ventricles, sulci and cisterns are age appropriate. The barraza-white differentiation is intact. Patchy periventricular and subcortical white matter hypoattenuation is nonspecific but may be related to small vessel ischemic disease. The visualized paranasal sinuses and mastoid air cells are clear. The surrounding soft tissues and osseous structures are unremarkable. IMPRESSION: 1. No acute intracranial abnormality. Radiation optimization: All CT scans at this facility use at least one of these dose optimization brien hniques: automated exposure control mA and/or kV adjustment per patient size (includes targeted exam s where dose is matched to clinical indication) or iterative reconstruction.
[2024-05-04] MEDS: SODIUM CHLORIDE 0.9% 1,000 ML IV ONE ×2 (13:46→13:57)
[2024-05-04] MEDS: OXYCODONE W/ ACETAMINOPHEN 5/325MG TABLET PO ONE (13:57)
--- NOTE | 2024-05-04 14:01 | DVHHP2 ---
History of Present Illness Reason for Visit: headache History of Present Illness 63 yr old female pmh htn, hld, dm, anxiety, asthma, gallbladder surgery, hysterectomy, thyroidectomy, tl cc pt here for elevated blood pressure, pt states her symptoms started with headache that is how she knew her bp is elevated, pt states that she does admit to not taking her bp medication for the last 2 days, no chest pain no sob, no dizziness no weakness, pt was found blood pressure is 208/119, spoke with pt about her kidney function pt knows that she had some kidney disease she does see renal specialist about the kidney, when evaluating pt labs and imaging, pt was found to be given percocet, ns hydralazine, hemoglobin 10.7/32.7, trop negative, glucose 127, crea 2.79 elevation from last crea on chart in 2023, cxr unremarkable, ct scan brain negat mike, will admit for bp management and evaluation for ckd, if continued elevation consider renal consult Past Medical History see hpi above Past Surgical History see hpi above Family History Reviewed, non-contributory to the management of this case. Past Social History The patient lives at home, denies smoking, alcohol or illicit drugs abuse. Review of Systems Constitutional: No: Fever, Chills, Sweats, Weakness, Malaise, Other Eyes: No: Pain, Vision change, Conjunctivae inflammation, Eyelid inflammation, Other, Redness ENT: No: Ear pain, Ear discharge, Nose pain, Nose discharge, Nose congestion, Mouth pain, Mouth swelling, Throat pain, Throat swelling, Other Respiratory: No: Cough, Dry, Shortness of breath, SOB with excertion, Wheezing, Hemoptysis, Pleuritic Pain, Sputum, Wheezing, Other Gastrointestinal: No: Nausea, Vomiting, Abdominal Pain, Diarrhea, Constipation, Melena, Hematochezia, Other Genitourinary: No Dysuria, No Frequency, No Incontinence, No Hematuria, No Retention, No Other Musculoskeletal: No: other, neck pain, shoulder pain, arm pain, back pain, hand pain, leg pain, foot pain Skin: No: Rash, Lesions, Jaundice, Bruising, Other Neurological: Other (headache ); No: Weakness, Numbness, Incoordination, Change in speech, Confusion, Seizures Allergies: Coded Allergies: NO KNOWN ALLERGIES (Unverified , 04/25/21) Exam Vital Signs Vital Signs Date Time Temp Pulse Resp B/P (MAP) Pulse Ox O2 Delivery O2 Flow Rate FiO2 05/04/24 13:43 97.8 71 17 183/77 (112) 96 97.8 05/04/24 12:13 Room Air* 0 21 General Appearance: Alert, Oriented X3, Cooperative, No acute distress HEENT: Atraumatic, PERRLA, EOMI, Mucous membr. moist/pink Respiratory: Clear to auscultation, Normal air movement Cardiovascular: Regular rate, Normal S1, Normal S2, No murmurs Abdominal: Normal bowel sounds, Soft, No tenderness, No hepatospenomegaly, No masses Extremities: No clubbing, No cyanosis, No edema, Normal pulses, No tenderness/swelling Skin: No rashes, No breakdown, No significant lesion Neuro: Other (neuro non focal ) Psych/Mental Status: Mental status NL, Mood NL Labs/Xrays ct brain negative cxr negative I reviewed labs, imaging CT scan abdomen pelvis, EKG and all diagnostic studies on this patient from ED records and the medical chart Labs Test 05/04/24 13:26 05/04/24 12:12 Range/Units White Blood Count 5.7 4.4-10.8 10^3/uL Red Blood Count 3.92 L 4.0-5.20 10^6/uL Hemoglobin 10.7 L 12.2-16.2 g/dL Hematocrit 32.7 L 36.0-46.0 % Mean Corpuscular Volume 83.3 80.0-100.0 fL Mean Corpuscular Hemoglobin 27.4 L 28.0-32.0 pg Mean Corpuscular Hemoglobin Concent 32.8 32.0-36.0 g/dL Red Cell Distribution Width 15.9 H 11.8-14.3 % Platelet Count 222 140-450 10^3/uL Mean Platelet Volume 8.3 6.9-10.8 fL Neutrophils (%) (Auto) 68.3 37.0-80.0 % Lymphocytes (%) (Auto) 21.3 10.0-50.0 % Monocytes (%) (Auto) 5.8 0.0-12.0 % Eosinophils (%) (Auto) 3.8 0.0-7.0 % Basophils (%) (Auto) 0.8 0.0-2.0 % Neutrophils # (Auto) 3.9 1.6-8.6 10 ^3/uL Lymphocytes # (Auto) 1.2 0.4-5.4 10 ^3/uL Monocytes # (Auto) 0.3 0-1.3 10 ^3/uL Eosinophils # (Auto) 0.2 0-0.8 10 ^3/uL Basophils # (Auto) 0 0-0.2 10 ^3/uL Nucleated Red Blood Cells 0.2 % Sodium Level 142 136-145 mmol/L Potassium Level 4.4 3.5-5.1 mmol/L Chloride Level 112 H 98-107 mmol/L Carbon Dioxide Level 24 20-31 mmol/L Anion Gap 6 5-15 Blood Urea Nitrogen 52 H 9-23 mg/dL Creatinine 2.79 H 0.550-1.02 mg/dL Glomerular Filtration Rate Calc 18 >90 mL/min BUN/Creatinine Ratio 18.6 10.0-20.0 Serum Glucose 127 H 74-106 mg/dL Calcium Level 8.9 8.7-10.4 mg/dL Total Bilirubin 0.2 0.2-1.0 mg/dL Aspartate Amino Transferase (AST) 14 13-40 U/L Alanine Aminotransferase (ALT) 12 7-40 U/L Alkaline Phosphatase 126 H 46-116 U/L Total Protein 5.9 5.7-8.2 g/dL Albumin 3.7 3.2-4.8 g/dL Assessment/Plan Assessment/Plan acute hypertension emergency bp 208/119 likely from medication noncompliance ct scan brain negative ordered labetolol prn elevated bp will cont home dose hydralazine atc and hold hctz in setting of worsening crea monitor bp acute elevation in crea with hx of ckd likely from htn and dm not being controlled ordered urine sodium and crea to check fena tighter bp control and glucose control consider renal if no improvement in crea hold hctz for now acute intractable headache ct scan of brain negative ordered morphine prn pain mild anemia ordered occult blood in stool chronic problems htn cont home medication hydralazine but will hold hctz for now hld dm ISS anxiety asthma fen/ppx diet ivf protonix scd plan admit to tele Plan discussed with: Patient Date of Service: May 04, 2024 Billing Provider: RUSH MANCILLA DNP Common Visit Codes: [id number] INP/OBS CARE (HIGH) RUSH MANCILLA [facility] May 04, 2024 14:01
[2024-05-04] MEDS ORDERED: NITROGLYCERIN 0.4 MG SL TAB SL PRN (15:15)
[2024-05-04] MEDS ORDERED: MORPHINE SULFATE INJ 2 MG/ml SYRG IV PRN (15:30)
[2024-05-04] MEDS ORDERED: DOCUSATE SOD 100 MG CAP PO PRN (15:30)
[2024-05-04] MEDS ORDERED: DEXTROSE (50%) 50ML SYRG IV PRN (15:30)
[2024-05-04] MEDS: SODIUM CHLORIDE 0.9% 1,000 ML IV SCH (15:30)
[2024-05-04] MEDS: LABETALOL HCL 20 MG/4 ML VL IV PRN (15:54)
[2024-05-04] MEDS: ONDANSETRON HCL 4 MG/2 ML VIAL IV PRN (15:54)
[2024-05-04 16:00] VITALS: TEMP 97.4
[2024-05-04] MEDS: InsuLIN REG 1unit/0.01ml Soln (100units/ml) SC SCH (17:10)
[2024-05-04] MEDS: ACCU-CHEK COMFORT CURVE STRIP VI SCH (17:12)
[2024-05-04] MEDS: LOSARTAN POTASSIUM 25 MG TAB PO ONE (17:42)
[2024-05-04 18:00] VITALS: BP 147/84; PULSE 70; RESP 17; O2SAT 96
[2024-05-04] MEDS ORDERED: DOCUSATE SOD 100 MG CAP PO SCH (22:00)
[2024-05-04] MEDS ORDERED: hydrALAZINE HCL 10 MG TAB PO SCH (22:00)
[2024-05-04] MEDS ORDERED: SUCRALFATE 1 GM TAB PO SCH (22:00)
[2024-05-05] MEDS ORDERED: PANTOPRAZOLE 40 MG TAB PO SCH (07:00)
--- NOTE | 2024-05-06 11:09 | ECG ---
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
== END 2024-05-04 19:19 | disposition left against medical advice (07) | DRG 199 ==
LOC: ER 11:35 → OVERFLOW 15:01
PROVIDERS: ADMIT Nurse Practitioner Family; ATTEND Nurse Practitioner Family
DX: I16.1 Hypertensive emergency (principal); N17.9 Acute kidney failure, unspecified; E78.5 Hyperlipidemia, unspecified; E11.22 Type 2 diabetes mellitus with diabetic chronic kidney disease; D64.9 Anemia, unspecified; E89.0 Postprocedural hypothyroidism; I12.9 Hypertensive chronic kidney disease with stage 1 through stage 4 chronic kidney disease, or unspecified chronic kidney disease; J45.909 Unspecified asthma, uncomplicated; T46.5X6A Underdosing of other antihypertensive drugs, initial encounter; N18.9 Chronic kidney disease, unspecified; Z91.148 Patient's other noncompliance with medication regimen for other reason; Z79.899 Other long term (current) drug therapy; Z90.710 Acquired absence of both cervix and uterus; Y92.89 Other specified places as the place of occurrence of the external cause
CPT/HCPCS: 36415; 70450; 71045; 80053; 82962; 84484; 85025; 93005; 96361; 96374; 99291; G0378; J1815; J2405

== ENCOUNTER 2024-06-05 01:58 | Inpatient (IN) | payer MEDICAID ==
[2024-06-05] VITALS (9 sets, daily range): BP systolic 147–170; BP diastolic 79–102; PULSE 66–80; RESP 16–18; TEMP 97.6–97.8; O2SAT 95–99
[~2024-06-05] VITALS: Ht 162.6 cm; Wt 101.9 kg
--- NOTE | 2024-06-05 02:56 | ED.PDOC ---
History of Present Illness HPI Comments 63-year-old female BIBA for hypoglycemia. Per EMS, patient was "acting abnormal" per . Upon EMS arrival, patient's BGL was 34. EMS gave 250mLs of D-10. BGL went up to 199. Patient is currently A&Ox4. Chief Complaint: Hypoglycemia Time Seen by MD: 02:44 Primary Care Provider: SALONI Reviewed Notes: Medications, Allergies Allergies: Coded Allergies: NO KNOWN ALLERGIES (Unverified , 04/25/21) Home Meds Active Scripts Furosemide (Lasix) 20 Mg Tb, 1 TAB PO DAILY, #30 TAB 0 Refills Prov:RUY PENA PAC 02/22/23 Nitrofurantoin Monohydrate Mac (Macrobid) 100 Mg Cap, 100 MG PO BID for 7 Days, #14 CAP Prov:RUY PENA PAC 02/22/23 Acetaminophen (Tylenol) 325 Mg Tb, 650 MG PO Q6HP PRN for 7 Days, #56 TAB Prov:DYAN MILES MD 12/31/21 Ibuprofen (Ibuprofen) 400 Mg Tab, 1 TAB PO Q6HPRN for 7 Days, #28 TAB Prov:DYAN MILES MD 12/31/21 Sucralfate (CARAFATE) 1 Gm Tab, 1 GM PO BID for 30 Days, #60 TAB Prov:CISCO CHUA MD 11/24/21 Polyethylene Glycol (MIRALAX 17GM PWD) 17 Gm Pw, 17 GRAMS PO DAILY PRN for 5 Days, #527 GRAMS Prov:AIDE ONEAL MD 05/01/21 Docusate Sodium (Colace) 100 Mg Cap, 1 CAP PO BID for 5 Days, #10 CAP Prov:AIDE ONEAL MD 05/01/21 Reported Medications Hydralazine HCl (Hydralazine Hydrochloride) 10 Mg Tab, 10 MG PO TID, TAB 11/03/22 Semaglutide (Ozempic) 2 Mg/3 Ml Inj, 2 MG SC weekly, INJ 11/03/22 Citalopram Hydrobromide (Citalopram Hydrobromide) 10 Mg Tab, 10 MG PO DAILY for 30 Days, MG 11/03/22 Oxycodone Hcl (OxyCONTIN ER Tablet) 10 Mg Tb, 10 MG PO TID, TAB 11/03/22 Loratadine (CLARITIN TABLET) 10 Mg Tb, 1 TAB PO DAILYPRN 08/11/21 Glipizide (Glipizide) 10 Mg Tab, 2 TAB PO BID 08/11/21 Magnesium Oxide (mg Supplement (Magnesium-Oxide) 400 Mg Tab, 1 TAB PO DAILYPRN 08/11/21 Magnesium Citrate (Magnesium Citrate) 1.745 Gm/30 Ml Celeste, PO UD 08/11/21 Pantoprazole Sodium Sesquihydr (Pantoprazole Sodium) 40 Mg Tab, 1 TAB PO QAM 08/11/21 Information Source: Emergency Med Personnel Mode of Arrival: EMS Severity: Moderate Timing: Hours Duration: Since onset 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, 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 Past Medical History PAST MEDICAL HISTORY: Anxiety, Asthma, DM, High Lipids, HTN Surgical History: Cholecystectomy, Hysterectomy, Thyroidectomy, Tubal Ligation [employer]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 Family History Family History: Reviewed,noncontributory to illness, Family hx of Cancer Social History Smoker: Non-Smoker Alcohol: Denies ETOH Use Drugs: Denies Drug Use Lives In: Home Constitutional: denies: chills, diaphoresis, fatigue, fever, malaise, sweats, weakness, others EENTM: denies: blurred vision, double vision, ear bleeding, ear discharge, ear drainage, ear pain, ear ringing, eye pain, eye redness, hearing loss, mouth pain, mouth swelling, nasal discharge, nose bleeding, nose congestion, nose pain, photophobia, tearing, throat pain, throat swelling, voice changes, others Respiratory: denies: cough, hemoptysis, orthopnea, SOB at rest, shortness of breath, SOB with excertion, stridor, wheezing, others Cardiovascular: denies: chest pain, dizzy spells, diaphoresis, Dyspnea on exertion, edema, irregular heart beat, left arm pain, lightheadedness, palpita tions, PND, syncope, others Gastrointestinal: denies: abdomen distended, abdominal pain, blood streaked krzysztof wels, constipated, diarrhea, dysphagia, difficulty swallowing, hematemesis, melena, nausea, poor appetite, poor fluid intake, rectal bleeding, rectal pain, vomiting, others Genitourinary: denies: abnormal vagina bleeding, burning, dyspareunia, dysuria, flank pain, frequency, hematuria, incontinence, pain, , vagina discharge, urgency, others Neurological: denies: dizziness, fainting, headache, left sided numbness, left sided weakness, numbness, paresthesia, pre-existing deficit, right sided numbness, right sided weakness, seizure, speech problems, tingling, tremors, weakness, others Musculoskeletal: denies: back pain, gout, joint pain, joint swelling, muscle pain, muscle stiffness, neck pain, others Integumetry: denies: bruises, change in color, change in hair/nails, dryness, laceration, lesions, lumps, rash, wounds, others Allergic/Immunocompromised: denies: Difficulty Healing, Frequent Infections, Hives, Itching, others Hematologic/Lymphatic: denies: anemia, blood clots, easy bleeding, easy bruis ing, swollen glands, others Endocrine: reports: others (HYPOGLYCEMIA); denies: excessive hunger, excessive sweating, excessive thirst, excessive urination, flushing, intolerance to cold, intolerance to heat, unexplained weight gain, unexplained weight loss Psychiatric: denies: anxiety, bipolar disorder, depression, hopeless, panic disorder, schizophrenia, sleepless, suicidal, others All Other Systems: Reviewed and Negative Physical Exam General Appearance: No Apparent Distress, Normal HEENT: Normal ENT Inspection, Pharynx Normal, TMs Normal Neck: Full Range of Motion, Non-Tender, Normal, Normal Inspection Respiratory: Chest Non-Tender, Lungs Clear, No Accessory Muscle Use, No Respiratory Distress, Normal Breath Sounds Cardiovascular: No Edema, No JVD, No Murmur, No Gallop, Normal Peripheral Pulses, Regular Rate/Rhythm Breast Exam: Deferred Gastrointestinal: No Organomegaly, Non Tender, No Pulsatile Mass, Normal Bowel Sounds, Soft Genitalia: Deferred Pelvic: Deferred Rectal: Deferred Extremities: No calf tenderness, Normal capillary refill, Normal inspection, Normal range of motion, Non-tender, No pedal edema Musculoskeletal : Apperance: Normal Neurologic: Alert, hematology oncology consultant II-XII nml as Tested, No Motor Deficits, Normal Affect, Normal Mood, No Sensory Deficits Cerebellar Function: Normal Reflexes: Normal Skin: Dry, Normal Color, Warm Lymphatic: No Adenopathy Was a procedure done? Was a procedure done?: No Differential Dx Considerations may include: ACS, CVA, viral syndrome, electrolyte abnormality X-Ray, Labs, Meds, VS Vital Signs Date Time Temp Pulse Resp B/P (MAP) Pulse Ox O2 Delivery O2 Flow Rate FiO2 06/05/24 03:51 66 18 95 Room Air* 0 21 06/05/24 02:40 97.5 66 18 190/86 (120) 98 97.5 06/05/24 02:18 99.1 61 14 198/94 (128) 98 99.1 Lab Test 06/05/24 04:04 06/05/24 03:10 06/05/24 03:03 Range/Units Troponin I High Sensitivity Pending 9 </=34 ng/L White Blood Count 5.4 4.4-10.8 10^3/uL Red Blood Count 4.22 4.0-5.20 10^6/uL Hemoglobin 11.4 L 12.2-16.2 g/dL Hematocrit 35.4 L 36.0-46.0 % Mean Corpuscular Volume 83.9 80.0-100.0 fL Mean Corpuscular Hemoglobin 27.0 L 28.0-32.0 pg Mean Corpuscular Hemoglobin Concent 32.3 32.0-36.0 g/dL Red Cell Distribution Width 15.9 H 11.8-14.3 % Platelet Count 218 140-450 10^3/uL Mean Platelet Volume 8.2 6.9-10.8 fL Neutrophils (%) (Auto) 78.7 37.0-80.0 % Lymphocytes (%) (Auto) 12.6 10.0-50.0 % Monocytes (%) (Auto) 5.4 0.0-12.0 % Eosinophils (%) (Auto) 2.8 0.0-7.0 % Basophils (%) (Auto) 0.5 0.0-2.0 % Neutrophils # (Auto) 4.2 1.6-8.6 10 ^3/uL Lymphocytes # (Auto) 0.7 0.4-5.4 10 ^3/uL Monocytes # (Auto) 0.3 0-1.3 10 ^3/uL Eosinophils # (Auto) 0.1 0-0.8 10 ^3/uL Basophils # (Auto) 0 0-0.2 10 ^3/uL Nucleated Red Blood Cells 0.1 % Sodium Level 138 136-145 mmol/L Potassium Level 4.8 3.5-5.1 mmol/L Chloride Level 112 H 98-107 mmol/L Carbon Dioxide Level 20 20-31 mmol/L Anion Gap 6 5-15 Blood Urea Nitrogen 39 H 9-23 mg/dL Creatinine 2.59 H 0.550-1.02 mg/dL Glomerular Filtration Rate Calc 20 >90 mL/min BUN/Creatinine Ratio 15.1 10.0-20.0 Serum Glucose 43 *L 74-106 mg/dL Calcium Level 9.2 8.7-10.4 mg/dL POC Glucose 57 L 70-106 mg/dl Current Medications Medications (Trade) Dose Ordered Sig/Shanae Route Start Time Stop Time Status Last Admin Dextrose 50 ml ONCE ONCE IV 06/05/24 03:45 06/05/24 03:46 DC 06/05/24 03:59 Time of 1ST Reevaluation: 03:14 Reevaluation 1ST: Unchanged Patient Education/Counseling: Diagnosis, Treatment, Prognosis Family Education/Counseling: No Family Present Departure 1 Departure Time of Disposition: 04:23 (Patient with recurrent hypoglycemia. We will admit patient for further workup and expert consultation) Impression: Primary Impression: Acute metabolic encephalopathy Additional Impression: Hypoglycemia Disposition: 09 ADMITTED INPATIENT Admit to: Med Surg Condition: Serious Critical Care Note Critical Care Time?: No Stability Stability form required: No Heart Score Heart Score: Heart Score Response (Comments) Value History N/A 0 EKG N/A 0 Age N/A 0 Risk Factors N/A 0 Troponin N/A 0 Total 0 I personally scribed for MARLEY MOLINA MD ([email or web address]) on 06/05/24 at 02:56. Electronically submitted by Rehan Mahan ([email or web address]). MARLEY MOLINA MD Jun 05, 2024 02:56
[2024-06-05 03:27] LABS: Basophils # (auto) 0 10 ^3/uL (0-0.2); Basophils % (auto) 0.5 % (0.0-2.0); Eosinophils # (auto) 0.1 10 ^3/uL (0-0.8); Lymphocytes # (auto) 0.7 10 ^3/uL (0.4-5.4); Monocytes # (auto) 0.3 10 ^3/uL (0-1.3); Neutrophils # (auto) 4.2 10 ^3/uL (1.6-8.6); Nucleated Red Blood Cells % 0.1 %; White Blood Cell 5.4 10^3/uL (4.4-10.8)
[2024-06-05 03:28] LABS: Eosinophils % (auto) 2.8 % (0.0-7.0); Hematocrit 35.4 % (36.0-46.0); Hemoglobin 11.4 g/dL (12.2-16.2); Lymphocytes % (auto) 12.6 % (10.0-50.0); Mean Corpuscular Hgb Conc. 32.3 g/dL (32.0-36.0); Mean Corpuscular Volume 83.9 fL (80.0-100.0); Monocytes % (auto) 5.4 % (0.0-12.0); Neutrophils % (auto) 78.7 % (37.0-80.0); Platelet Count (auto) 218 10^3/uL (140-450); Red Blood Cells 4.22 10^6/uL (4.0-5.20); Red Cell Distribution Width 15.9 % (11.8-14.3)
[2024-06-05 03:38] LABS: Potassium 4.8 mmol/L (3.5-5.1); Sodium 138 mmol/L (136-145)
[2024-06-05 03:39] LABS: Anion Gap 6 (5-15)
[2024-06-05 03:40] LABS: Calcium 9.2 mg/dL (8.7-10.4)
[2024-06-05 03:45] LABS: BUN/Creatinine Ratio 15.1 (10.0-20.0)
[2024-06-05 03:49] LABS: Blood Urea Nitrogen 39 mg/dL (9-23); Carbon Dioxide 20 mmol/L (20-31); Chloride 112 mmol/L (98-107)
[2024-06-05 03:50] LABS: Glucose 43 mg/dL (74-106)
[2024-06-05] MEDS: DEXTROSE (50%) 50ML SYRG IV ONE (03:59)
[2024-06-05] MEDS: cloNIDine HCL 0.1 MG TAB PO ONE (04:48)
--- NOTE | 2024-06-05 04:55 | DVH ---
CHEST RADIOGRAPH Indication: weakness Technique: Single frontal view of the chest was obtained Comparison: XY CHEST PORTABLE on DOS: 05/04/24, XY CHEST PORTABLE on DOS: 11/02/22, XY CHEST PORTABLE o n DOS: 08/24/22 FINDINGS: Lines and Tubes: None Lungs: No focal consolidation. Pleura: No effusion. No pneumothorax. Cardiomediastinal contours: Unremarkable Bones: No acute osseous abnormality. IMPRESSION: 1. No acute cardiopulmonary disease.
--- NOTE | 2024-06-05 05:14 | DVHHP2 ---
History of Present Illness Reason for Visit: Altered mental status History of Present Illness 63-year-old female presents for evaluation of altered mental status. Patient is currently alert and oriented x3. Patient has been acting abnormal yesterday with family. When her blood sugar was checked it was reading in the 30s. EMS was called and brought in for evaluation. On arrival patient's blood pressure also noted to be elevated in the 200s. Currently denies chest pain or palpitations. No headache or blurred vision. She does report having lower back pain due to chronic symptoms. Past Medical History Diabetes mellitus, asthma, dyslipidemia, congestive heart failure, hypertension Past Surgical History Hysterectomy, thyroidectomy, tubal ligation, cholecystectomy Family History Noncontributory Smoke: No ALCOHOL: none Drugs: None Lives: with Family Review of Systems Review of Systems Review of systems are currently negative otherwise addressed in HPI. Allergies: Coded Allergies: NO KNOWN ALLERGIES (Unverified , 04/25/21) Exam Vital Signs Vital Signs Date Time Temp Pulse Resp B/P (MAP) Pulse Ox O2 Delivery O2 Flow Rate FiO2 06/05/24 04:48 212/103 06/05/24 03:51 66 18 95 Room Air* 0 21 06/05/24 02:40 97.5 97.5 Exam Gen: 63-year-old female in no apparent distress, morbidly obese Skin: Warm, dry, normal color and texture, no rash. HEENT: Normocephalic atraumatic, mucous membranes moist and pink. Neck: Cervical and supraclavicular nodes normal without enlargement, trachea is midline, thyroid gland is normal without masses. Pulmonary: Clear to auscultation and percussion bilaterally. Cardiac: Regular rate and rhythm. No murmur Abdomen: Soft, nontender, nondistended, bowel sounds present all 4 quadrants, no guarding, no rigidity, no organomegaly. Extremities: No cyanosis, clubbing, no edema Neuro: Cranial nerves II through XII grossly intact, normal affect and speech, no focal motor deficits. Labs/Xrays ORDERING PHYSICIAN: MARLEY MOLINA MD PROCEDURE(s): CXRP - CHEST PORTABLE REASON: weakness ORDER NUMBER(s): [id number], ACCESSION NUMBER(s): [id number] CHEST RADIOGRAPH Indication: weakness Technique: Single frontal view of the chest was obtained Comparison: XY CHEST PORTABLE on DOS: 05/04/24, XY CHEST PORTABLE on DOS: 11/02/22, XY CHEST PORTABLE on DOS: 08/24/22 FINDINGS: Lines and Tubes: None Lungs: No focal consolidation. Pleura: No effusion. No pneumothorax. Cardiomediastinal contours: Unremarkable Bones: No acute osseous abnormality. IMPRESSION: 1. No acute cardiopulmonary disease. Labs Test 06/05/24 04:04 06/05/24 03:10 06/05/24 03:03 Range/Units Troponin I High Sensitivity 9 </=34 ng/L White Blood Count 5.4 4.4-10.8 10^3/uL Red Blood Count 4.22 4.0-5.20 10^6/uL Hemoglobin 11.4 L 12.2-16.2 g/dL Hematocrit 35.4 L 36.0-46.0 % Mean Corpuscular Volume 83.9 80.0-100.0 fL Mean Corpuscular Hemoglobin 27.0 L 28.0-32.0 pg Mean Corpuscular Hemoglobin Concent 32.3 32.0-36.0 g/dL Red Cell Distribution Width 15.9 H 11.8-14.3 % Platelet Count 218 140-450 10^3/uL Mean Platelet Volume 8.2 6.9-10.8 fL Neutrophils (%) (Auto) 78.7 37.0-80.0 % Lymphocytes (%) (Auto) 12.6 10.0-50.0 % Monocytes (%) (Auto) 5.4 0.0-12.0 % Eosinophils (%) (Auto) 2.8 0.0-7.0 % Basophils (%) (Auto) 0.5 0.0-2.0 % Neutrophils # (Auto) 4.2 1.6-8.6 10 ^3/uL Lymphocytes # (Auto) 0.7 0.4-5.4 10 ^3/uL Monocytes # (Auto) 0.3 0-1.3 10 ^3/uL Eosinophils # (Auto) 0.1 0-0.8 10 ^3/uL Basophils # (Auto) 0 0-0.2 10 ^3/uL Nucleated Red Blood Cells 0.1 % Sodium Level 138 136-145 mmol/L Potassium Level 4.8 3.5-5.1 mmol/L Chloride Level 112 H 98-107 mmol/L Carbon Dioxide Level 20 20-31 mmol/L Anion Gap 6 5-15 Blood Urea Nitrogen 39 H 9-23 mg/dL Creatinine 2.59 H 0.550-1.02 mg/dL Glomerular Filtration Rate Calc 20 >90 mL/min BUN/Creatinine Ratio 15.1 10.0-20.0 Serum Glucose 43 *L 74-106 mg/dL Calcium Level 9.2 8.7-10.4 mg/dL POC Glucose 57 L 70-106 mg/dl Assessment/Plan Assessment/Plan Assessment Hypertensive urgency Metabolic encephalopathy Hypoglycemia Morbid obesity Plan Admit the patient to Med surge to the hospitalist As needed antihypertensives Accu-Cheks q.4 hours with mild insulin coverage Resume home medications UA pending Continue treatment per orders. Plan discussed with: Patient My Orders Orders - CISCO DU AGACNP Procedure Category Date Status Time Urinalysis LAB 06/05/24 Logged 04:28 Straightcath If ORDERS 06/05/24 Transmitted Unable To Void 04:41 Hydralazine Hcl PHA 06/05/24 Transmitted Tablet (Apresoline 06:00 Furosemide Tablet PHA 06/05/24 Transmitted (Lasix Tablet) 10:00 Atorvastatin (Lipitor) PHA 06/05/24 Transmitted 22:00 Hydrochlorothiazide PHA 06/05/24 Transmitted Tablet (Hydrochlorot 10:00 Carvedilol Tablet PHA 06/05/24 Transmitted (Coreg Tablet) 10:00 Consistent DIET 06/05/24 Transmitted Carb(Ccho)Diabetes Breakfast Glucose Blood PHA 06/05/24 Transmitted (Accu-Chek Comfort 08:00 Mild Sliding Scale PHA 06/05/24 Transmitted 08:00 Dextrose 50% Syringe PHA 06/05/24 Transmitted 05:15 Admit ADMIT 06/05/24 Transmitted 05:05 Hydrocodone-Acet PHA 06/05/24 Transmitted 5/325mg Tab ([place] 05:15 Ondansetron Hcl PHA 06/05/24 Transmitted (Zofran) 05:15 Echo 2d Mode Cardiac US 06/05/24 Transmitted DOP 05:05 Condition: Stable GENESIS 06/05/24 Transmitted 05:05 Acetaminophen Tablet PHA 06/05/24 Transmitted (Tylenol Tablet) 05:15 Bedrest With Bathroom GENESIS 06/05/24 Transmitted Privileg 05:05 Basic Metabolic Panel LAB 06/06/24 Verified 04:00 Date of Service: Jun 05, 2024 Billing Provider: CISCO DU Common Visit Codes: [id number] INP/OBS CARE (HIGH) CISCO DU Jun 05, 2024 05:14
[2024-06-05] MEDS ORDERED: DEXTROSE (50%) 50ML SYRG IV PRN (05:15)
[2024-06-05] MEDS ORDERED: ONDANSETRON HCL 4 MG/2 ML VIAL IV PRN (05:15)
[2024-06-05] MEDS: HYDROcodone-ACET 5/325MG TAB PO PRN (06:25)
[2024-06-05] MEDS: hydrALAZINE HCL 25 MG TAB PO SCH (06:28)
[2024-06-05 07:08] LABS: Urine Bacteria None Seen /hpf (None Seen)
[2024-06-05 07:36] LABS: Urine Blood 1+ /uL (Negative); Urine Clarity Clear (Clear); Urine Color Light-Yellow (Yellow); Urine Protein, UAD 3+ (Negative); Urine Specific Gravity 1.016 (1.001-1.035); Urine Squamous Epithelial Cell FEW /hpf (<5); Urine Urobilinogen Normal (Negative); Urine WBC < 1 /HPF (0-5)
[2024-06-05] MEDS: InsuLIN REG 1unit/0.01ml Soln (100units/ml) SC SCH (08:00)
[2024-06-05] MEDS: ACCU-CHEK COMFORT CURVE STRIP VI SCH (08:00)
[2024-06-05] MEDS: FUROSEMIDE 20 MG TAB PO SCH (10:53)
[2024-06-05] MEDS: hydroCHLOROthiazide 25 MG TAB PO SCH (10:53)
[2024-06-05] MEDS: CARVEDILOL 3.125 MG TAB PO SCH (10:54)
[2024-06-05] MEDS ORDERED: TIRZ15IN2 INH (17:25)
[2024-06-05] MEDS ORDERED: ATOR10TA52 PO (17:25)
[2024-06-05] MEDS ORDERED: TIRZ10IN INJ (17:25)
[2024-06-05] MEDS ORDERED: HYDR25TA87 PO (17:25)
[2024-06-05] MEDS ORDERED: [UNRECOGNIZED DRUG - CODE] OP (17:25)
[2024-06-05] MEDS ORDERED: PREG75CA PO (17:25)
[2024-06-05] MEDS ORDERED: CARV6.2551 PO (17:25)
[2024-06-05] MEDS ORDERED: FURO20TA3 PO (17:25)
[2024-06-05] MEDS: hydrALAZINE HCL 20 MG/ML VL IV PRN (18:28)
[2024-06-05] MEDS: CALCIUM CARB 500 MG CHEW TAB PO PRN (21:14)
[2024-06-05] MEDS: OXYCODONE W/ ACETAMINOPHEN 5/325MG TABLET PO ONE (21:20)
[2024-06-05] MEDS: ATORVASTATIN 20 MG TAB PO SCH (21:23)
[2024-06-06] VITALS (9 sets, daily range): BP systolic 132–198; BP diastolic 67–101; PULSE 63–91; RESP 16–20; TEMP 97.3–97.8; O2SAT 94–98
[2024-06-06] MEDS: ACETAMINOPHEN 325 MG TAB PO PRN (01:59)
[2024-06-06 07:31] LABS: Chloride 106 mmol/L (98-107); Sodium 137 mmol/L (136-145)
[2024-06-06 07:32] LABS: Anion Gap 6 (5-15); Carbon Dioxide 25 mmol/L (20-31)
[2024-06-06 07:33] LABS: Calcium 9.7 mg/dL (8.7-10.4); Potassium 5.4 mmol/L (3.5-5.1)
[2024-06-06 07:37] LABS: BUN/Creatinine Ratio 14.8 (10.0-20.0)
[2024-06-06 07:38] LABS: Blood Urea Nitrogen 41 mg/dL (9-23); Glucose 114 mg/dL (74-106)
--- NOTE | 2024-06-06 12:03 | DVHPN2 ---
Subjective The patient is seen and examined at bedside. She is alert awake today. She said she had diabetes type 2. She said she used to take glipizide 4 times per day but recently her doctor change it to every 12 hours. Reviewed: Care Plan, H&P, Labs, Medications, Previous Orders, Radiology Changes from previous H/P or p: No Changes Objective Vitals Vital Signs Date Time Temp Pulse Resp B/P (MAP) Pulse Ox O2 Delivery O2 Flow Rate FiO2 06/06/24 09:05 82 144/90 06/06/24 08:50 97.6 17 95 97.6 06/06/24 08:00 Room Air* 0 21 Intake/Output Intake and Output 06/06/24 07:00 Intake Total 840 ml Balance 840 ml Intake Oral 840 ml # Voids 4 General Appearance: Alert, Oriented X3, Cooperative, No acute distress HEENT: Atraumatic, PERRLA, EOMI, Mucous membr. moist/pink Lungs: Clear to auscultation, Normal air movement Cardiovascular: Regular rate, Normal S1, Normal S2, No murmurs, Gallops, Rubs Neuro: Cranial nerves 3-12 NL Psych/Mental Status: Mental status NL Medications Current Medications Medications Dose Ordered Sig/Shanae Route Start Time Stop Time Status Last Admin Dose Admin Hydralazine HCl 25 mg Q8HR PO 06/05/24 06:00 06/05/24 21:23 25 MG Furosemide 20 mg DAILY PO 06/05/24 10:00 06/05/24 10:53 20 MG Atorvastatin Calcium 10 mg HS PO 06/05/24 22:00 06/05/24 21:23 10 MG Hydrochlorothiazide 25 mg DAILY PO 06/05/24 10:00 06/05/24 10:53 25 MG Carvedilol 6.25 mg Q12HR PO 06/05/24 10:00 06/06/24 09:05 6.25 MG Diagnostic Test (Pha) 1 strip IQ4HR 06/05/24 08:00 06/06/24 09:04 1 STRIP Insulin Human Regular IQ4HR SC 06/05/24 08:00 06/06/24 04:28 2 UNITS Dextrose 50 ml UD PRN IV 06/05/24 05:15 Acetaminophen/ Hydrocodone Bitart 1 tab Q4HP PRN PO 06/05/24 05:15 06/05/24 15:42 1 TAB Ondansetron HCl 4 mg Q4HP PRN IV 06/05/24 05:15 Acetaminophen 650 mg Q6HP PRN PO 06/05/24 05:15 06/06/24 01:59 650 MG Hydralazine HCl 10 mg Q6HP PRN IV 06/05/24 17:45 06/06/24 00:53 10 MG Calcium Carbonate 500 mg QIDPRN PRN PO 06/05/24 20:45 06/06/24 04:11 500 MG Laboratory Results Laboratory Tests 06/05/24 03:10 06/06/24 06:16 Chemistry Test 06/06/24 06:16 Calcium Level 9.7 mg/dL (8.7-10.4) Urinalysis Test 06/05/24 03:11 Urine Color Light-yellow (Yellow) Urine Clarity Clear (Clear) Urine pH 6.0 (5.0-9.0) Urine Specific [place] 1.016 (1.001-1.035) Urine Protein 3+ (Negative) H Urine Ketones Negative (Negative) Urine Blood 1+ /uL (Negative) H Urine Nitrite Negative (Negative) Urine Bilirubin Negative (Negative) Urine Urobilinogen Normal mg/dL (Negative) Urine Leukocyte Esterase Negative /uL (Negative) Urine RBC 3 /hpf (0 - 4) Urine Microscopic WBC < 1 /HPF (0-5) Urine Squamous Epithelial Cells Few /hpf (<5) Urine Bacteria None seen /hpf (None Seen) Urine Glucose Trace mg/dL (Normal) Labs and/or images reviewed: Labs reviewed by me Assessment/Plan Assessment/Plan Hypertensive urgency Metabolic encephalopathy due to hypoglycemia hypertension urgency Hypoglycemia Diabetes type 2 Morbid obesity Continue current management. Continue with ssi Continue to monitor her blood glucose. Continue HCTZ This medical document was created using an electronic medical record system with [email or web address] direct computerized dictation system. Although this document has been carefully reviewed, there may still be some phonetic and typographical errors. These areas are purely typographical due to imperfections of the software programs, and do not reflect any compromise in the patient's medical care. Plan discussed with: Patient Date of Service: June 06, 2024 Billing Provider: AILYN JC MD Common Visit Codes: [id number] INP/OBS CARE(HIGH) AILYN JC MD June 06, 2024 12:02
--- NOTE | 2024-06-06 16:35 | DVHSR ---
APPROVED REPORT EXAM: LIMITED Two-dimensional and M-mode echocardiogram with Doppler and color Doppler. Blood Pressure: 167/73 mmHg INDICATION Chest Pain RISK FACTORS Obesity: Height: 5'4", Weight: 190 DIMENSIONS LVDd3.8 (3.8-5.7cm)LA (2D)4.0 (1.9-4.0cm)Aortic Root3.1 (2.0-3.7cm) LVDs2.6 (2.5-4.0cm)LA (MM) (1.9-4.0cm)Aortic Cusp Exc2.0 (1.5-2.0cm) EF (%) 60.0 (55-70%)Rt. Atrium (1.9-4.0cm)Asc. Aorta cm IVSd1.6 (0.7-1.1cm)RV (D) (1.8-2.4cm) PWd1.5 (0.7-1.1cm) Mitral Valve MitralMitral Stenosis E wave0.60m/sMV Mean GR.mmHg A wave1.20m/sMV Peak GR.mmHg E/A ratio0.52D MVAcm2 Aortic Valve Aortic ValveAortic Stenosis V10.60m/Fran Mean GR.5mmHg V21.50m/Fran Peak GR.10mmHg LVOT Diameter2.4 (1.8-2.4cm)Doppler AVA1.81cm2 Pulmonic Valve V20.80m/s Other Information Quality : Technically LimitedRhythm : Technically limited study due to body habitus. Conclusion Sinus rhythm. Difficult acoustic windows. Valves appear to be structurally normal. Mild thickening Concentric LVH. Left atrial enlargement. Aortic root enlargement. Left ventricular systolic performance is preserved at 55-60% with normal RV. Dopplers unremarkable. Small pericardial effusion not hemodynamically significant. No intracardiac masses thrombi or vegetations discernible.
[2024-06-06] MEDS: OXYCODONE W/ ACETAMINOPHEN 5/325MG TABLET PO ONE (19:29)
[2024-06-07 01:00] VITALS: BP 131/78; PULSE 87; RESP 16; TEMP 97.5; O2SAT 96
[2024-06-07 05:00] VITALS: BP 133/65; PULSE 84; RESP 16; TEMP 97.6; O2SAT 95
[2024-06-07 08:15] VITALS: RESP 17
[2024-06-07 09:00] VITALS: BP 134/83; PULSE 84; RESP 21; TEMP 97.6; O2SAT 93
--- NOTE | 2024-06-07 09:10 | DVH ---
Upper Extremity Venous Duplex Clinical History: right forearm swelling, Comparison: LLDVT on DOS: 12/31/21, LT LOWER DVT on DOS: 12/31/21, LLDVT on DOS: 12/21/21 Technique: Duplex Doppler evaluation of the venous system of the RIGHT lower neck and upper extremity including color Doppler and spectral/pulsed waveform analysis was performed. Findings: The internal jugular vein demonstrates appropriate compressibility and waveform variability . The subclavian vein is patent on color Doppler evaluation without intraluminal thrombus and demonstra sharon waveform variability . The visualized portion of the brachiocephalic vein is patent on color Doppler evaluation without intr aluminal thrombus and demonstrates waveform variability . The axillary vein demonstrates appropriate compressibility and waveform variability . The brachial veins demonstrate appropriate compressibility and patency on Doppler evaluation. The radial vein shows doppler patency. The ulnar vein shows doppler patency. The basilic vein demonstrates appropriate compressibility and patency on Doppler evaluation. The cephalic vein demonstrates appropriate compressibility and patency on Doppler evaluation. Impression: 1. No venous thrombus identified in the RIGHT upper extremity vessels evaluated above. If clinical concern/symptoms persist or worsen, short-interval follow-up study is suggested.
--- NOTE | 2024-06-07 11:19 | DVHDS2 ---
Discharge Summary Date of Admission Jun 05, 2024 at 05:05 Date of Discharge: June 07, 2024 Admitting Diagnosis Hypertensive urgency Metabolic encephalopathy due to hypoglycemia and hypertension urgency Hypoglycemia Diabetes type 2 Morbid obesity Labs/Diagnostic Data: Laboratory Results Test 06/07/24 08:29 06/06/24 06:16 06/05/24 06:33 06/05/24 04:04 POC Glucose 117 mg/dl (70-106) Sodium Level 137 mmol/L (136-145) Potassium Level 5.4 mmol/L (3.5-5.1) Chloride Level 106 mmol/L (98-107) Carbon Dioxide Level 25 mmol/L (20-31) Anion Gap 6 (5-15) Blood Urea Nitrogen 41 mg/dL (9-23) Creatinine 2.77 mg/dL (0.550-1.02) Glomerular Filtration Rate Calc 19 mL/min (>90) BUN/Creatinine Ratio 14.8 (10.0-20.0) Serum Glucose 114 mg/dL (74-106) Calcium Level 9.7 mg/dL (8.7-10.4) Troponin I High Sensitivity 8 ng/L (</=34) Thyroid Stimulating Hormone (TSH) 0.22 uIU/mL (0.55-4.78) Test 06/05/24 03:11 06/05/24 03:10 Urine Color Light-yellow (Yellow) Urine Clarity Clear (Clear) Urine pH 6.0 (5.0-9.0) Urine Specific [place] 1.016 (1.001-1.035) Urine Protein 3+ (Negative) Urine Ketones Negative (Negative) Urine Blood 1+ /uL (Negative) Urine Nitrite Negative (Negative) Urine Bilirubin Negative (Negative) Urine Urobilinogen Normal mg/dL (Negative) Urine Leukocyte Esterase Negative /uL (Negative) Urine RBC 3 /hpf (0 - 4) Urine Microscopic WBC < 1 /HPF (0-5) Urine Squamous Epithelial Cells Few /hpf (<5) Urine Bacteria None seen /hpf (None Seen) Urine Glucose Trace mg/dL (Normal) White Blood Count 5.4 10^3/uL (4.4-10.8) Red Blood Count 4.22 10^6/uL (4.0-5.20) Hemoglobin 11.4 g/dL (12.2-16.2) Hematocrit 35.4 % (36.0-46.0) Mean Corpuscular Volume 83.9 fL (80.0-100.0) Mean Corpuscular Hemoglobin 27.0 pg (28.0-32.0) Mean Corpuscular Hemoglobin Concent 32.3 g/dL (32.0-36.0) Red Cell Distribution Width 15.9 % (11.8-14.3) Platelet Count 218 10^3/uL (140-450) Mean Platelet Volume 8.2 fL (6.9-10.8) Neutrophils (%) (Auto) 78.7 % (37.0-80.0) Lymphocytes (%) (Auto) 12.6 % (10.0-50.0) Monocytes (%) (Auto) 5.4 % (0.0-12.0) Eosinophils (%) (Auto) 2.8 % (0.0-7.0) Basophils (%) (Auto) 0.5 % (0.0-2.0) Neutrophils # (Auto) 4.2 10 ^3/uL (1.6-8.6) Lymphocytes # (Auto) 0.7 10 ^3/uL (0.4-5.4) Monocytes # (Auto) 0.3 10 ^3/uL (0-1.3) Eosinophils # (Auto) 0.1 10 ^3/uL (0-0.8) Basophils # (Auto) 0 10 ^3/uL (0-0.2) Nucleated Red Blood Cells 0.1 % Other Laboratory Tests 06/06/24 06:16 06/05/24 03:10 Brief Hx & Hospital Course: This is a 63 years old female came to emergency department because of altered mental status. Patient is currently alert oriented x3. Patient had been acting abnormal since yesterday per family. Her sugar was checked by EMS and it was in the 30s. So the patient was transferred to the hospital for further evaluation. EMS gave her D50 and on arrival of Emergency Department her blood glucose improved. Her blood pressure also noted elevated to 200. She does have some back pain due to chronic problem. Apparently patient said her primary care physician is changing her Ozempic to Wegovy. Patient also take glyburide 4 times per day. So her blood glucose dropped really low at home. Sometimes she able to eat some sweets and blood glucose come up the this time she did not. She was admitted. She was put on sliding scale insulin and watch her hypoglycemia. Is subsequently improved. Blood pressure is improved with her hypertensive medication which restarted from home. Today her blood pressure is stable in the range of 130/80. Her blood glucose is stable and normal. I am going to discharge her home. Advised her to discuss with her PCP regarding to diabetes medication. Recommended to stop Zepbound and Monjaro for now until she see her primary care physician. Follow up with primary care physician 1-2 weeks. 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 Physical exam: HEENT: Normocephalic atraumatic pupils equal react to light and accommodation. Extraocular muscles intact, conjunctiva pink, oropharynx moist, no thrush, no exudate. Lymphatic: No lymphadenopathy Cardiovascular exam: S1, S2 was heard. No murmurs, rubs, gallops Lung: Clear on auscultation bilaterally, no wheeze, rale, rhonchi. GI: Abdominal soft, nondistended, nontenderness, positive bowel sounds. Extremity: No crepitus, cyanosis, edema. Pedal pulses present bilateral. Full range of motion. Skin: Normal turgor, no rash. Psych: Alert, oriented x3. Neurology: No focal deficits, cranial nerve II to XII grossly intact. This medical document was created using an electronic medical record system with [employer] direct computerized dictation system. Although this document has been carefully reviewed, there may still be some phonetic and typographical errors. These areas are purely typographical due to imperfections of the software programs, and do not reflect any compromise in the patient's medical care. Condition at Discharge: Stable Final Diagnosis/Problems List Hypertensive urgency Metabolic encephalopathy due to hypoglycemia and hypertension urgency Hypoglycemia Diabetes type 2 Morbid obesity Discharge Disposition: Home Discharge Instruct/Medications Diet: Consistent carbohydrate Activity: No Restrictions, As Tolerated Follow Up/Referral: pcp 1-2 weeks Medications: resume home meds Discharge Statement: "Patient was advised to return to the ER or call 911 if any headaches, dizziness, shortness of breath, chest pain, abdominal pain, bleeding, fevers, or worsening of medical condition. Patient was counseled about treatment plan, medications, possible side effects, patientverbalized understanding. All questions were answered to the best of my ability. This discharge took greater then 30 minutes in planning, reviewing documentation, counseling the patient, and discussing with other team members." ASSESSMENT ASSESSMENT Assessment hypoglycemia HTN Date of Service: June 07, 2024 Billing Provider: AILYN JC MD Common Visit Codes: 65592-RNR/OBS DISCH DAY >30min AILNY JC MD June 07, 2024 11:19
== END 2024-06-07 14:05 | disposition left against medical advice (07) | DRG 199 ==
LOC: ER 01:58 → EDBD 01:58 → OVERFLOW 05:05 → CENTRAL 13:34
PROVIDERS: ADMIT Internal Medicine; ATTEND Internal Medicine
DX: I16.0 Hypertensive urgency (principal); G93.41 Metabolic encephalopathy; E11.649 Type 2 diabetes mellitus with hypoglycemia without coma; I50.9 Heart failure, unspecified; E66.01 Morbid (severe) obesity due to excess calories; J45.909 Unspecified asthma, uncomplicated; I11.0 Hypertensive heart disease with heart failure; E89.0 Postprocedural hypothyroidism; M54.50 Low back pain, unspecified; F41.9 Anxiety disorder, unspecified; D25.9 Leiomyoma of uterus, unspecified; E78.5 Hyperlipidemia, unspecified; Z53.29 Procedure and treatment not carried out because of patient's decision for other reasons; Z90.49 Acquired absence of other specified parts of digestive tract; Z68.1 Body mass index [BMI] 19.9 or less, adult; Z90.710 Acquired absence of both cervix and uterus
CPT/HCPCS: 36415; 71045; 80048; 81001; 82962; 84443; 84484; 85025; 93306; 93971; G0378; J1815

== ENCOUNTER → 2024-10-09 | Emergency (ER) | payer MEDICAID ==
[~2024-10-09] VITALS: Ht 162.6 cm; Wt 80.0 kg
[~2024-10-09] MED LIST changes: -ACET-1079 PO; +ATOR10TA52 PO; +CARV6.2551 PO; -CITA10TA5 PO; -DOCU-94 PO; +FURO20TA3 PO; -GLIP10TA9 PO; -HYDR-5139 PO; +HYDR25TA87 PO; -IBUP-1453 PO; -LORA-483 PO; -MAGN241.6 PO; -MAGNSOL PO; -NITR-87 PO; -PANT40T PO; -POLY33504 PO; +PREG75CA PO; -SEMA2INJ3 SC; -SUCR1TAB31 PO; +TIRZ10IN INJ; +TIRZ15IN2 INH; +[UNRECOGNIZED DRUG - CODE] OP
[2024-10-09 01:36] VITALS: BP 167/98; PULSE 70; RESP 18; TEMP 98.2; O2SAT 96
--- NOTE | 2024-10-09 06:51 | ECG ---
[facility] Test Date: 2024-10-09 Test Time: 01:33:08 Pat Name: FELICITA STAFFORD Department: [facility] ED Patient ID: [id number] Room: Gender: F Manager Cath Lab: ED : 1960 Requested By: MARISOL SANDERS Order Number: [id number] Reading MD: Memo Newton Measurements Intervals [place] Rate: 66 P: 34 RI: 147 QRS: -14 QRSD: 94 T: 52 QT: 407 QTc: 427 Interpretive Statements Sinus rhythm Left atrial enlargement Abnormal R-wave progression, early transition Left ventricular hypertrophy Electronically Signed On 10-10-2024 17:02:00 PDT by Memo Newton Please click the below link to view image of tracing.
== END | disposition left against medical advice (07) ==
LOC: EDUNIT# 01:16 → ER 01:27 → EDBD 01:27
DX: F41.9 Anxiety disorder, unspecified (principal); I10 Essential (primary) hypertension; Z53.21 Procedure and treatment not carried out due to patient leaving prior to being seen by health care provider
CPT/HCPCS: 93005